=== PATIENT | female | born 1925 | race Caucasian/White ===

== ENCOUNTER 2017-05-25 20:38 | Inpatient (IN) | payer OTHER, MEDICARE ==
[2017-05-25 21:02] VITALS: BMI 27.3
--- NOTE | 2017-05-25 21:55 | PDOC ---
History of Present Illness - General Chief Complaint: Pain Stated Complaint: SWELLEN RIGHT LEG. Time Seen by Provider: 05/25/17 21:13 - History of Present Illness Initial Comments: 05/25/17 21:54 CHIEF COMPLAINT: leg pain HISTORY OF PRESENT ILLNESS: 89 yo F with hx of afib, NIDDM, diverticulitis, renal insufficiecny, anemia, osteoarthritis, and anxiety presents to ED w/ c/o redness, tenderness, and swelling to b/l shins. Patient reports that she noticed the redness yesterday but "didn't think much of it", but today she "was sitting and put my hand on my leg and noticed it was kind of tender, and when I looked down the redness and swelling was worse than yesterday on my left leg. And now it's on my right leg too." She denies any recent trauma or injury to the leg, but states "sometimes I felt like maybe some bugs were biting me, but I never noticed any bites." She denies any chest pain, shortness of breath, headache, dizzines, fever, chills, nausea, vomiting, or diarrhea. No recent travel or sick contacts. PAST MEDICAL HISTORY: as per HPI FAMILY HISTORY: Denies SOCIAL HISTORY: Former smoker. Denies alcohol, illicit drug use. SURGICAL HISTORY: colectomy, colostomy ALLERGIES: bacitracin, codeine REVIEW OF SYSTEMS General/Constitutional: Denies fever or chills. Denies weakness, weight change. HEENT: Denies change in vision. Denies ear pain or discharge. Denies sore throat. Cardiovascular: Denies chest pain or shortness of breath. Respiratory: Denies cough, wheezing, or hemoptysis. Gastrointestinal: Denies nausea, vomiting, diarrhea or constipation. Denies rectal bleeding. Genitourinary: Denies dysuria, frequency, or change in urination. Musculoskeletal: Swelling, redness, pain to b/l lower legs. Skin and breasts: Denies itching, rash or easy bruising. Neurologic: Denies headache, vertigo, loss of consciousness, or loss of sensation. PHYSICAL EXAM General Appearance: Well-appearing, appropriately dressed. No apparent distress. HEENT: EOMI, PERRLA, normal ENT inspection, normal voice, TMs normal, pharynx normal. No conjunctival pallor. No photophobia, scleral icterus. Respiratory/Chest: Lungs CTAB. No shortness of breath, chest tenderness, respiratory distress, accessory muscle use. No crackles, rales, rhonchi, stridor , wheezing, dullness Cardiovascular: RRR. S1, S2. Vascular Pulses: Dorsalis-Pedis (R): 2+, Dorsalis-Pedis (L): 2+ Gastrointestinal/Abdominal: Normal bowel sounds. Abdomen soft, non-distended. No tenderness or rebound tenderness. No organomegaly, pulsatile mass, guarding , hernia, hepatomegaly, splenomegaly. Musculoskeletal/Extremities: 1+ pitting edema, erythema, tenderness, warmth, and swelling to b/l lower legs. FROM of all extremities, normal capillary refill. Integumentary: See MSK. Neurologic: parts room clerk II-XII intact. Fully oriented, alert. Appropriate mood/affect. Motor strength 5/5. No appreciable EOM palsy, facial droop or sensory deficit. 05/25/17 22:48 Past History - Past Medical History Allergies/Adverse Reactions: Allergies Allergy/AdvReac Type Severity Reaction Status Date / Time bacitracin Allergy Verified 05/25/17 20:59 bacitracin zinc Allergy Verified 05/25/17 20:59 [From Neosporin] codeine [Codeine] Allergy Verified 05/25/17 20:59 Home Medications: Ambulatory Orders Gabapentin 600 mg PO DAILY 07/23/15 Acetaminophen [Tylenol .Regular Strength -] 650 mg PO Q4H PRN #0 tablet Allopurinol [Zyloprim -] 100 mg PO DAILY tablet 08/03/15 Aspirin [ASA -] 81 mg PO DAILY tab.chew 08/03/15 Carvedilol [Coreg -] 6.25 mg PO BID tablet 08/03/15 B12/Levomefolate Calcium/B-6 1 DAILY 01/26/16 Bepreve 1 OU DAILY 01/26/16 Calcium + Vitamin D Tablet 1 DAILY 01/26/16 Furosemide 20 mg PO DAILY 01/26/16 Latanoprost 1 OU DAILY 01/26/16 Nateglinide 60 mg PO BID 01/26/16 Polyethylene Glycol 3350 [Miralax 119 gm Btl -] 17 gm PO Q48H 01/26/16 Prilosec 20 mg PO Q48H 01/26/16 Slo-Iron DAILY 01/26/16 Vitamin C 1 DAILY 01/26/16 Cardiac Disorders: Yes COPD: Yes CHF: Yes Diabetes: Yes (type 2) GI Disorders: Yes (Diverticulitis, multiple abd Sx WMC, colostomy) Disorders: Yes (incontinence) HTN: Yes - Surgical History Abdominal Surgery: Yes (COLOSTOMY, HERNIA) - Psycho/Social/Smoking Cessation Hx Anxiety: No Suicidal Ideation: No Smoking Status: No Smoking History: Never smoked Have you smoked in the past 12 months: No Number of Cigarettes Smoked Daily: 0 Information on smoking cessation initiated: No Hx Alcohol Use: No Drug/Substance Use Hx: No Substance Use Type: None Hx Substance Use Treatment: No *Physical Exam - Vital Signs Last Vital Signs Temp Pulse Resp BP Pulse Ox 97.7 F 61 18 147/65 97 05/25/17 20:59 05/25/17 20:59 05/25/17 20:59 05/25/17 20:59 05/25/17 20:59 ED Treatment Course - LABORATORY CBC & Chemistry Diagram: 05/25/17 22:52 05/25/17 22:52 - RADIOLOGY Radiology Studies Ordered: Category Date Time Status CHEST PA & LAT [RAD] Stat Radiology 05/25/17 21:44 Ordered Medical Decision Making - Medical Decision Making 05/25/17 22:55 89 yo F with hx of afib, NIDDM, diverticulitis, renal insufficiecny, anemia, osteoarthritis, and anxiety presents to ED w/ c/o redness, tenderness, and swelling to b/l shins. -CBC, CMP, PT/INR -Duplex US b/l legs 05/26/17 11:45 US positive for left posterior tibial DVt. 05/26/17 00:[address] Merida, covering for PCP MD Santana. Dr. Merida requests to admit under hospitalist and will come in for consult tomorrow. -70 mg lovenox Patient admitted to med/surg under hospitalist service *DC/Admit/Observation/Transfer Diagnosis at time of Disposition: DVT (deep venous thrombosis) Qualifiers: DVT location: lower extremity Affected thrombotic vein of extremity: tibial Chronicity: acute Laterality: left Qualified Code(s): I82.442 - Acute embolism and thrombosis of left tibial vein - Discharge Dispostion Admit: Yes - Referrals Referrals: Star Santana MD [Primary Care Provider] -
[2017-05-25 23:03] LABS: BASOPHIL 1.9 % (0-2.0); EOSINOPHIL 4.5 % (0-4.5); MCHC 31.8 g/dl (32.0-36.0); MEAN CELL VOLUME 81.6 fl (80-96); NEUTROPHILS 60.6 % (42.8-82.8); PLATELET COUNT 153 K/MM3 (134-434); RDW 19.8 % (11.6-15.6); WHITE BLOOD COUNT 4.9 K/mm3 (4.0-10.0)
[2017-05-25 23:26] LABS: INR 1.03 (0.82-1.09); PROTHROMBIN TIME (PATIENT) 11.3 SEC (9.98-11.88)
[2017-05-25] MEDS ORDERED: ENOXAPARIN NA (PORCINE) 60 MG/0.6 ML DISP.SYRIN SQ SCH (23:45)
[2017-05-25 23:50] LABS: ALBUMIN 3.1 g/dl (3.4-5.0); ANION GAP 12 (8-16); BILIRUBIN,TOTAL 0.2 mg/dL (0.2-1.0); CALCIUM 8.4 mg/dL (8.5-10.1); CO2 19 mmol/L (21-32); CREATININE 2.2 mg/dL (0.55-1.02); GLUCOSE,RANDOM 130 mg/dL (74-106); SGOT/AST 13 U/L (15-37); SGPT/ALT 15 U/L (12-78); TOT PROT 5.8 g/dl (6.4-8.2)
[2017-05-25 23:52] LABS: ALK PHOS 63 U/L (45-117)
[2017-05-26] MEDS ORDERED: ENOXAPARIN NA (PORCINE) 80 MG/0.8 ML DISP.SYRIN SQ ONE (00:18)
--- NOTE | 2017-05-26 00:48 | PN ---
Teaching Attending Note Name of Resident: Yoshi Morales ATTENDING PHYSICIAN STATEMENT I saw and evaluated the patient. I reviewed the resident's note and discussed the case with the resident. I agree with the resident's findings and plan as documented. SUBJECTIVE: 89 yo F with Pmhx of afib, NIDDM, diverticulitis, CKD, anemia, OA, and anxiety , presents with erythema, tenderness, to shins. States she noticed her erythema and edema on her left leg today as she was sitting. States that erythema was apparent on both legs, but progressed to warmth and edema on L. Leg. Denies any shortness of breath, chest pain or pressure. Recieved Lovenox 70 in ED OBJECTIVE: Physical: VS" Vital Signs Period Temp Pulse Resp BP Sys/Phillips Pulse Ox Last 24 Hr 97.7 F 61 18 147/65 97 GEN: NAD, Resting in Bed, HEENT: NCAT, PERRL CARD: RRR S1, S2 RESP: CTAB ABD: BSX4, NTD to palpation EXT: Bilateral gutierrez erythemam R+L ext. LLE with warmth and edema, +2/4 pulses CBCD WBC 4.9 K/mm3 (4.0-10.0) D 05/25/17 22:52 RBC 3.50 M/mm3 (3.60-5.2) L 05/25/17 22:52 Hgb 9.1 GM/dL (10.7-15.3) L D 05/25/17 22:52 Hct 28.6 % (32.4-45.2) L 05/25/17 22:52 MCV 81.6 fl (80-96) 05/25/17 22:52 MCHC 31.8 g/dl (32.0-36.0) L 05/25/17 22:52 RDW 19.8 % (11.6-15.6) H 05/25/17 22:52 Plt Count 153 K/MM3 (134-434) D 05/25/17 22:52 MPV 11.0 fl (7.5-11.1) D 05/25/17 22:52 CMP Sodium 145 mmol/L (136-145) 05/25/17 22:52 Potassium 4.7 mmol/L (3.5-5.1) 05/25/17 22:52 Chloride 114 mmol/L (98-107) H 05/25/17 22:52 Carbon Dioxide 19 mmol/L (21-32) L D 05/25/17 22:52 Anion Gap 12 (8-16) 05/25/17 22:52 BUN 57 mg/dL (7-18) H D 05/25/17 22:52 Creatinine 2.2 mg/dL (0.55-1.02) H D 05/25/17 22:52 Creat Clearance w eGFR 21.02 (>60) 05/25/17 22:52 Random Glucose 130 mg/dL (74-106) H 05/25/17 22:52 Calcium 8.4 mg/dL (8.5-10.1) L 05/25/17 22:52 Total Bilirubin 0.2 mg/dL (0.2-1.0) D 05/25/17 22:52 AST 13 U/L (15-37) L D 05/25/17 22:52 ALT 15 U/L (12-78) D 05/25/17 22:52 Alkaline Phosphatase 63 U/L (45-117) 05/25/17 22:52 Total Protein 5.8 g/dl (6.4-8.2) L 05/25/17 22:52 Albumin 3.1 g/dl (3.4-5.0) L D 05/25/17 22:52 CXR- Pending Home Medications Medication Instructions Recorded Gabapentin 600 mg PO DAILY 07/23/15 Acetaminophen [Tylenol .Regular 650 mg PO Q4H PRN #0 tablet 08/03/15 Strength -] Allopurinol [Zyloprim -] 100 mg PO DAILY tablet 08/03/15 Aspirin [ASA -] 81 mg PO DAILY tab.chew 08/03/15 Carvedilol [Coreg -] 6.25 mg PO BID tablet 08/03/15 B12/Levomefolate Calcium/B-6 1 DAILY 01/26/16 Bepreve 1 OU DAILY 01/26/16 Calcium + Vitamin D Tablet 1 DAILY 01/26/16 Furosemide 20 mg PO DAILY 01/26/16 Latanoprost 1 OU DAILY 01/26/16 Nateglinide 60 mg PO BID 01/26/16 Polyethylene Glycol 3350 [Miralax 17 gm PO Q48H 01/26/16 119 gm Btl -] Prilosec 20 mg PO Q48H 01/26/16 Slo-Iron DAILY 01/26/16 Vitamin C 1 DAILY 01/26/16 DVT: L. Posterior Tibial Vein ASSESSMENT AND PLAN: 89 yo F with Pmhx of Afib, NIDDM, CKD, anemia, OA who presents with LLE DVT 1.) DVT LLE - S/P Lovenox in ED - In light of inc. Cr. would start Heparin in amand bridge to Coumadin or consider Eliquis 2.) Afib - Rate controlled - C/W Coreg 3.) NIDDM - FS - RAISS 4.) Anemia - Chk. Fe studies - C/W iron - Chl B12/folate Place in OBS
--- NOTE | 2017-05-26 02:40 | HP ---
CHIEF COMPLAINT: Leg Pain PCP: Dr. Davis HISTORY OF PRESENT ILLNESS: Pt is an 89yo F with a PMHx of Afib not on Anticoag, DM2, HTN, CHF, CKD, Anemia , OA, multiple large bowel procedures who presented with a couple of days of erythematous, swollen legs. The patient first noticed a scab on her L leg days ago, and further pinpoint hemorrhagic spots. She then noticed the redness in her L leg became more diffuse, without TTP. Yesterday the patient noted her R leg also becoming diffusely erythematous, swollen, and this time TTP in the lateral calf area. The patient has no hx of recent decrease in mobility, no active cancer, no prior DVTs or PEs. She does not recall being on anticoagulation. ER course was notable for: (1) D-Dimer - elevated (2) B/L duplex U/S - L tibial DVT (3) Started Enoxaparin 70 Recent Travel: Denies PAST MEDICAL HISTORY: Afib not on Anticoag, DM2, HTN, Diabetic Nephropathy, Anemia, OA PAST SURGICAL HISTORY: Multiple large bowel surgeries, pt has permanent colostomy. Social History: Smoking: Former smoker, quit 20 years ago Alcohol: Denies Drugs: Denies Family History: Denies Immediate FHx of cancer Allergies bacitracin Allergy (Verified 05/25/17 20:59) bacitracin zinc [From Neosporin] Allergy (Verified 05/25/17 20:59) codeine [Codeine] Allergy (Verified 05/25/17 20:59) HOME MEDICATIONS: Home Medications Medication Instructions Recorded Gabapentin 600 mg PO DAILY 07/23/15 Acetaminophen [Tylenol .Regular 650 mg PO Q4H PRN #0 tablet 08/03/15 Strength -] Allopurinol [Zyloprim -] 100 mg PO DAILY tablet 08/03/15 Aspirin [ASA -] 81 mg PO DAILY tab.chew 08/03/15 Carvedilol [Coreg -] 6.25 mg PO BID tablet 08/03/15 B12/Levomefolate Calcium/B-6 1 DAILY 01/26/16 Bepreve 1 OU DAILY 01/26/16 Calcium + Vitamin D Tablet 1 DAILY 01/26/16 Furosemide 20 mg PO DAILY 01/26/16 Latanoprost 1 OU DAILY 01/26/16 Nateglinide 60 mg PO BID 01/26/16 Polyethylene Glycol 3350 [Miralax 17 gm PO Q48H 01/26/16 119 gm Btl -] Prilosec 20 mg PO Q48H 01/26/16 Slo-Iron DAILY 01/26/16 Vitamin C 1 DAILY 01/26/16 REVIEW OF SYSTEMS CONSTITUTIONAL: Absent: fever, chills, diaphoresis, generalized weakness, malaise, loss of appetite, weight change HEENT: Absent: rhinorrhea, nasal congestion, throat pain, throat swelling, difficulty swallowing, mouth swelling, ear pain, eye pain, visual changes CARDIOVASCULAR: Absent: chest pain, syncope, palpitations, irregular heart rate, lightheadedness , peripheral edema RESPIRATORY: Absent: cough, shortness of breath, dyspnea with exertion, orthopnea, wheezing, stridor, hemoptysis GASTROINTESTINAL: Absent: abdominal pain, abdominal distension, nausea, vomiting, diarrhea, constipation, melena, hematochezia GENITOURINARY: Absent: dysuria, frequency, urgency, hesitancy, hematuria, flank pain, genital pain MUSCULOSKELETAL: Absent: arthralgia, joint swelling, back pain, neck pain Present: leg swelling, myalgia SKIN: Absent: rash, itching, pallor HEMATOLOGIC/IMMUNOLOGIC: Absent: easy bleeding, lymphadenopathy, frequent infections Present: easy bruising ENDOCRINE: Absent: unexplained weight gain, unexplained weight loss, heat intolerance, cold intolerance NEUROLOGIC: Absent: headache, focal weakness or paresthesias, dizziness, unsteady gait, seizure, mental status changes, bladder or bowel incontinence PSYCHIATRIC: Absent: anxiety, depression, suicidal or homicidal ideation, hallucinations. PHYSICAL EXAMINATION GENERAL: AAO x3, In no acute distress HEENT: PERRLA, EOMi, No LAD LUNGS: CTABL, non labored breathing HEART: S1, S2, bradycardic rate, regular rhythm, no murmurs ABD: Pt has pouch of large intestine covered over by skin graft, colostomy bag attached, soft, nontender, non-distended, normal BS MSK (UPPER): 2+ pulses, warm, well perfuse, easy bruising MSK (LOWER) RIGHT: 2+ pulses, erythematous, not-warm area extending from ankle to below knee, 1+ pitting edema, TTP in R lateral calf, neg homans LEFT: 2+ pulses, mild erythema, non-localized, 1 healed over scab wound, multiple pinpoint hemorrhages, no pitting edema, no TTP, neg homans NEURO: Cranial nerves 2-12 intact, sensation was intact to face/body, MSK 5+ in all extremities Laboratory Last Values WBC 4.9 K/mm3 (4.0-10.0) D 05/25/17 22:52 RBC 3.50 M/mm3 (3.60-5.2) L 05/25/17 22:52 Hgb 9.1 GM/dL (10.7-15.3) L D 05/25/17 22:52 Hct 28.6 % (32.4-45.2) L 05/25/17 22:52 MCV 81.6 fl (80-96) 05/25/17 22:52 MCH 26.0 pg (25.7-33.7) 05/25/17 22:52 MCHC 31.8 g/dl (32.0-36.0) L 05/25/17 22:52 RDW 19.8 % (11.6-15.6) H 05/25/17 22:52 Plt Count 153 K/MM3 (134-434) D 05/25/17 22:52 MPV 11.0 fl (7.5-11.1) D 05/25/17 22:52 Neutrophils % 60.6 % (42.8-82.8) 05/25/17 22:52 Lymphocytes % 17.5 % (8-40) D 05/25/17 22:52 Monocytes % 15.5 % (3.8-10.2) H 05/25/17 22:52 Eosinophils % 4.5 % (0-4.5) 05/25/17 22:52 Basophils % 1.9 % (0-2.0) D 05/25/17 22:52 INR 1.03 (0.82-1.09) 05/25/17 22:52 D-Dimer 315 ng/ml (<200-235) H 05/25/17 22:52 Sodium 145 mmol/L (136-145) 05/25/17 22:52 Potassium 4.7 mmol/L (3.5-5.1) 05/25/17 22:52 Chloride 114 mmol/L (98-107) H 05/25/17 22:52 Carbon Dioxide 19 mmol/L (21-32) L D 05/25/17 22:52 Anion Gap 12 (8-16) 05/25/17 22:52 BUN 57 mg/dL (7-18) H D 05/25/17 22:52 Creatinine 2.2 mg/dL (0.55-1.02) H D 05/25/17 22:52 Creat Clearance w eGFR 21.02 (>60) 05/25/17 22:52 Random Glucose 130 mg/dL (74-106) H 05/25/17 22:52 Calcium 8.4 mg/dL (8.5-10.1) L 05/25/17 22:52 Total Bilirubin 0.2 mg/dL (0.2-1.0) D 05/25/17 22:52 AST 13 U/L (15-37) L D 05/25/17 22:52 ALT 15 U/L (12-78) D 05/25/17 22:52 Alkaline Phosphatase 63 U/L (45-117) 05/25/17 22:52 B-Natriuretic Peptide 713.31 pg/ml (5-450) H 05/25/17 22:52 Total Protein 5.8 g/dl (6.4-8.2) L 05/25/17 22:52 Albumin 3.1 g/dl (3.4-5.0) L D 05/25/17 22:52 IMAGING: BLLE U/S - call center manager image reading: L posterior tibial vein DVT ASSESSMENT/PLAN: Pt is an 89yo F w/ hx of Afib not on anticoag, CKD, DM2 who presented with progressive erythema, swelling on bilateral legs who was noted to have a L posterior tibial DVT # L posterior tibial DVT - Pt received Lovenox in ED - Start Heparin protocol in AM - Eventually PO anticoagulant at discharge # VIOLET on CKD - CKD from diabetic nephropathy - Give gentle IVF 42cc/hr - D/c'd lovenox and started heparin - Hold Nephrotoxic meds - Renally dose all meds # Hx of Afib - Pt is now in sinus rhythm - Continue Coreg 6.25mg PO BID for rate control # Hx of NIDDM - Pts home Nateglinide is nonformulary - Start BGMs with SSI - Continue Gabapentin 600mg PO QD # Hx of Anemia - F/u CBCs, transfuse to keep Hgb >7 - F/u iron panel, B12, folate # Hx of CHF - Hold Lasix in light of high Cr - Monitor for fluid overload with gently hydration # FEN - Fluid: 42cc/hr IV NS - Electrolytes: F/u - Nutrition: Renal diet # Prophylaxis - DVT: Pt had lovenox, will be on heparin - GI: Not indicated - Deconditioning: PT ordered # Disposition - Placed in obs Dr. Yoshi Morales MD. PGY1 - IM Resident The case was discussed with the attending physician Dr. Diallo Visit type - Emergency Visit Emergency Visit: Yes ED Registration Date: 05/27/17 Care time: The patient presented to the Emergency Department on the above date and was hospitalized for further evaluation of their emergent condition. - New Patient This patient is new to me today: Yes Date on this admission: 05/27/17 - Critical Care Critical Care patient: No
[2017-05-26] MEDS ORDERED: POLYETHYLENE GLYCOL 3350 119 GM BTL PO SCH (03:30)
[2017-05-26] MEDS ORDERED: SODIUM CHLORIDE 1,000 ML IV SCH ×3 (03:30→08:45)
[2017-05-26] MEDS: INSULIN SLIDING SCALE (NOVOLOG) 1 VIAL SQ SCH ×4 (07:03→23:06)
[2017-05-26] MEDS ORDERED: CARVEDILOL 6.25 MG TABLET (FP) PO SCH ×2 (10:00)
[2017-05-26] MEDS ORDERED: GABAPENTIN 300 MG CAPSULE (FP) PO SCH (10:00)
[2017-05-26] MEDS ORDERED: CARVEDILOL 12.5 MG TABLET (FP) PO SCH (10:00)
--- NOTE | 2017-05-26 10:01 | CON.NEP ---
Consult Consult Specialty:: Nephrology ([facility]) Referred by:: Alexi Reason for Consultation:: CKD stage 4 - History of Present Illness Chief Complaint: Leg swelling History of Present Illness: This is a 89 year old woman with PMhx of CKD Stage 4, DM, Multiple Abd surgeries for Diverticulitis, Chronic Anemia, Peripheral Neuropathy, COPD, who presented to the ED with Left LE swelling and and Right LE tenderness and found to have a left LE DVT. Pt states that she has noticed more bruising on her leg and tenderness. Denies any chest pain, abd pain N/V/D, SOB, fever, chills. Pt has been compliant with all her meds at home. Reports frequent urination which is her baseline. On Lasix at home. Pt was noted to have mild hyperkalemia in the office recently and is controlled by diet. Not on LORI/ARB. 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 No: Alzheimer's, CVA Cardio/Vascular: Yes: AFIB (paroxysmal). No: Aneurysm Pulmonary: Yes: COPD Gastrointestinal: Yes: Other (permanent ostomy post complicated prolonged abdominal surgery for ruptured diverticular approximately 12 years ago.) Hepatobiliary: Yes: Cholecystitis Renal/: Yes: Renal Inusuff Psych: Yes: Anxiety Musculoskeletal: Yes: Osteoarthritis. No: Chronic low back pain Endocrine: Yes: Diabetes Mellitus, Other (gout) - Past Surgical History Past Surgical History: Yes: Colectomy, Colostomy, Hernia Repair, Joint Replacement (hip) - Alcohol/Substance Use Hx Alcohol Use: No - Smoking History Smoking history: Never smoked Have you smoked in the past 12 months: No Aproximately how many cigarettes per day: 0 Home Medications - Allergies Allergies/Adverse Reactions: Allergies Allergy/AdvReac Type Severity Reaction Status Date / Time bacitracin Allergy Verified 05/25/17 20:59 bacitracin zinc Allergy Verified 05/25/17 20:59 [From Neosporin] codeine [Codeine] Allergy Verified 05/25/17 20:59 - Home Medications Home Medications: Ambulatory Orders Allopurinol [Zyloprim -] 100 mg PO DAILY 05/26/17 Ascorbic Acid/Ascorbate Sodium [Vit C-Abigail Hips 500 mg Chew Tb] 500 mg PO BID Aspirin [Aspirin EC] 81 mg PO DAILY 05/26/17 Carvedilol 12.5 mg PO BID 05/26/17 Gabapentin 300 mg PO DAILY 05/26/17 Iron 18 mg PO BID 05/26/17 Mirtazapine [Remeron Soltab -] 15 mg PO DAILY 05/26/17 Nateglinide [Starlix (Nf)] 30 mg PO BID 05/26/17 Prilosec 0 mg PO DAILY 05/26/17 Vit B12/Intrinsic Fact/Folate [Intrinsi [id number] Tablet] 1 each PO DAILY 05/26 Family Disease History - Family Disease History Family History: Unremarkable Review of Systems - Review of Systems Constitutional: denies: Chills, Fever, Loss of Appetite Eyes: reports: No Symptoms HENT: reports: No Symptoms Neck: reports: No Symptoms Cardiovascular: denies: Chest Pain, Edema, Palpitations, Shortness of Breath Respiratory: denies: Cough, Exercise Intolerance, Hemoptysis, Orthopnea, SOB on Exertion Gastrointestinal: reports: No Symptoms Musculoskeletal: reports: Extremity Pain Integumentary: reports: Bruising Neurological: reports: No Symptoms Nephrology Consult - Height Height: 5 ft 3 in - Weight Weight: 154 lb 8 oz - BMI Body Mass Index (BMI): 27.3 - Lab Results Anion Gap: Anion Gap Anion Gap 12 (8-16) 05/25/17 22:52 - Imaging Ultrasound: Report Reviewed - Physical Examination Vital Signs: Vital Signs Temperature 98.7 F 05/26/17 07:26 Pulse Rate 58 L 05/26/17 07:26 Respiratory Rate 18 05/26/17 07:26 Blood Pressure 143/59 05/26/17 07:26 O2 Sat by Pulse Oximetry (%) 98 05/26/17 03:46 Constitutional: Yes: Well Nourished, No Distress, Calm Eyes: Yes: Conjunctiva Clear HENT: Yes: Atraumatic, Normocephalic Neck: Yes: Supple Cardiovascular: Yes: Regular Rate and Rhythm Respiratory: Yes: Regular, Rhonchi (at lung bases) Gastrointestinal: Yes: Normal Bowel Sounds, Soft, Hernia (Large Ventral hernia) Renal/: No: Bladder Distention, CVA Tenderness - Left, CVA Tenderness - Right , Alberto Present Edema: Yes Edema: LLE: 1+, RLE: 1+ Neurological: Yes: Alert, Oriented Problem List - Problems (1) DVT (deep venous thrombosis) Code(s): I82.409 - ACUTE EMBOLISM AND THOMBOS UNSP DEEP VN UNSP LOWER EXTREMITY Qualifiers: DVT location: lower extremity Affected thrombotic vein of extremity: tibial Chronicity: acute Laterality: left Qualified Code(s): I82.442 - Acute embolism and thrombosis of left tibial vein (2) CKD (chronic kidney disease) Code(s): N18.9 - CHRONIC KIDNEY DISEASE, UNSPECIFIED Qualifiers: Chronic kidney disease stage: stage 3 (moderate) Qualified Code(s): N18.3 - Chronic kidney disease, stage 3 (moderate) (3) Ventral hernia with bowel obstruction Code(s): K43.6 - OTHER AND UNSP VENTRAL HERNIA WITH OBSTRUCTION, W/O GANGRENE (4) Metabolic acidosis Code(s): E87.2 - ACIDOSIS Assessment/Plan 89 year old woman with PMhx of CKD Stage 4, DM, Multiple Abd surgeries for Diverticulitis, Chronic Anemia, Peripheral Neuropathy, COPD, who presented to the ED with Left LE swelling and and Right LE tenderness and found to have a left LE DVT. #CKD Stage 4 (Baseline CR 2.1-2.3) Serum Cr is presently at baseline BUN elevated -? intravascular volume depletion agree with trial of gentle IVF check UA if possible #DVT on Eliquis on apporiate dose for CKD #Non-Anion gap metabolic acidosis secondary to CKD Start sodium bicarb 650mg Daily goal bicarb > 22 #Normocytoic anemia Check stools and iron studies Thank you for this referral Will follow Faisal Ha DO
[2017-05-26] MEDS ORDERED: PT OWN MED DRAWER 7, Y5N ONE ×2 (10:35→21:34)
[2017-05-26] MEDS: ASPIRIN 81 MG CHEWABLE TABLETS PO SCH (10:37)
[2017-05-26] MEDS: ALLOPURINOL 100 MG TABLET (FP) PO SCH (10:38)
[2017-05-26] MEDS: CALCIUM 500MG/VIT-D 200 UNITS COMBO TABLET (FP) PO SCH (10:42)
[2017-05-26] MEDS: POLYETHYLENE GLYCOL 3350 119 GM BTL PO SCH (10:43)
--- NOTE | 2017-05-26 11:38 | HOSP ---
Subjective - Review of Symptoms Subjective: PT seen and examined. She is having an acute pain to her LLE thigh and hip, describing as a "Kulwinder horse" Physical Examination Vital Signs: Vital Signs Temperature 98.7 F 05/26/17 07:26 Pulse Rate 58 L 05/26/17 07:26 Respiratory Rate 18 05/26/17 07:26 Blood Pressure 143/59 05/26/17 07:26 O2 Sat by Pulse Oximetry (%) 98 05/26/17 03:46 Constitutional: Yes: Calm Eyes: Yes: PERRL Neck: Yes: Supple Cardiovascular: Yes: Regular Rate and Rhythm, S1, S2 Respiratory: Yes: Rhonchi (LLL) Gastrointestinal: Yes: Soft, Other (+ colostomy bag) Extremities: Yes: Erythema (b/l LE) Edema: No Integumentary: Yes: Erythema (RLE + warm, + tenderness to palpation), Skin Tear (L gutierrez dried scab) Neurological: Yes: Alert, Oriented, Cran Nerves II-XII Intact Psychiatric: Yes: Alert, Oriented Hospitalist Encounter Assessment: Assessment: 89 year old female with Afib not on AC, DM II, HTN, CHF, CKD 4, Anemia, OA, multiple large bowel procedures admitted with LLE DVT and RLL cellulitis. Plan: 1. LLE DVT - Stop heparin - Start Eliquis 2.5mg BID - Check mg, phos now 2. RLE cellulitis - Check CXR - Start cefazolin q8 3. CKD 4 - Cr baseline 2.1-2.3 - Give gentle fluids NS @ 75cc/hr - Check urine studies 4. Non AG metabolic acidosis - Start PO bicarb 650mg 3. A fib - Rate controlled - Cont coreg 12.5mg BID - Eliqius started (no previously on AC) 4. DM II - ISS, BGM ACHS 5. HTN - Coreg 6. Anemia of chronic disease - Check iron studies
--- NOTE | 2017-05-26 11:53 | PN ---
Progress Note (short form) - Note Progress Note: PULMONARY CONSULTATION DICTATED 05/26/15 IMP LLE DVT CELLULITIS AFIB H/O CHF CHRONIC KIDNEY DISEASE STAGE 4 HTN DM ANEMIA S/P COLOSTOMY PLAN ELIQUIS ANTIBIOTICS MONITOR LYTES CHEST X-RAY RATE CONTROL DR RATLIFF Problem List - Problems (1) DVT (deep venous thrombosis) Code(s): I82.409 - ACUTE EMBOLISM AND THOMBOS UNSP DEEP VN UNSP LOWER EXTREMITY Qualifiers: DVT location: lower extremity Affected thrombotic vein of extremity: tibial Chronicity: acute Laterality: left Qualified Code(s): I82.442 - Acute embolism and thrombosis of left tibial vein (2) Metabolic acidosis Code(s): E87.2 - ACIDOSIS (3) ASHD (arteriosclerotic heart disease) Code(s): I25.10 - ATHSCL HEART DISEASE OF [place] CORONARY ARTERY W/O ANG PCTRS (4) Anemia Code(s): D64.9 - ANEMIA, UNSPECIFIED (5) Atrial fibrillation and flutter Code(s): I48.91 - UNSPECIFIED ATRIAL FIBRILLATION I48.92 - UNSPECIFIED ATRIAL FLUTTER (6) CKD (chronic kidney disease) Code(s): N18.9 - CHRONIC KIDNEY DISEASE, UNSPECIFIED Qualifiers: Chronic kidney disease stage: stage 3 (moderate) Qualified Code(s): N18.3 - Chronic kidney disease, stage 3 (moderate) (7) CKD (chronic kidney disease) stage 4, GFR 15-29 ml/min Code(s): N18.4 - CHRONIC KIDNEY DISEASE, STAGE 4 (SEVERE) (8) Diabetes 1.5, managed as type 2 Code(s): E13.9 - OTHER SPECIFIED DIABETES MELLITUS WITHOUT COMPLICATIONS (9) Hypertension Code(s): I10 - ESSENTIAL (PRIMARY) HYPERTENSION
[2017-05-26 11:57] LABS: URINE APPEARANCE CLEAR; URINE BILIRUBIN NEGATIVE (NEGATIVE); URINE BLOOD NEGATIVE (NEGATIVE); URINE COLOR STRAW; URINE GLUCOSE (UA) NEGATIVE (NEGATIVE); URINE KETONE NEGATIVE (NEGATIVE); URINE LEUK ESTERASE NEGATIVE (NEGATIVE); URINE NITRITE NEGATIVE (NEGATIVE); URINE UROBILINOGEN NEGATIVE mg/dL (0.2-1.0)
[2017-05-26] MEDS: ACETAMINOPHEN 325 MG TABLET (FP) PO PRN ×2 (12:00→20:43)
[2017-05-26 12:08] LABS: URINE PROTEIN 1+ (NEGATIVE)
[2017-05-26 12:10] LABS: URINE MUCUS RARE; URINE RBC 1 /hpf (0-3); URINE WBC 1 /hpf (3-5)
[2017-05-26] MEDS: APIXABAN 2.5 MG TABLET PO SCH ×2 (12:44→21:47)
[2017-05-26] MEDS: SODIUM BICARBONATE 650 MG TABLET PO SCH (12:44)
[2017-05-26] MEDS: CEFAZOLIN (PRE-DOCKED) 50 ML IVPB SCH ×2 (12:45→19:08)
--- NOTE | 2017-05-26 13:28 | CONS ---
PULMONARY CONSULTATION DATE OF CONSULTATION: 05/26/2017 REFERRING PHYSICIAN: Ami Truong NP HISTORY OF PRESENT ILLNESS: The patient is an 89-year-old white female with a past medical history of diabetes mellitus; chronic kidney disease, stage 4; history of colostomy; multiple surgeries secondary to diverticulitis; chronic anemia; peripheral neuropathy; COPD; admitted to [facility] with left lower extremity swelling and right lower extremity tenderness. Patient called me last night with the above complaints. At the time, she was advised to go to the emergency room to rule out DVT. She underwent a duplex of lower extremities, which revealed left lower extremity DVT. She was admitted to the floor and started on anticoagulation. Also, she noted that she had some swelling and some erythema on the right lower extremity. Of note is this was negative for DVT. Patient denies any chest pain, any palpitations. Denies any shortness of breath, cough, or hemoptysis. There is no history of recent sedentary lifestyle or prolonged bedrest. No recent surgeries. PAST MEDICAL HISTORY: Again includes chronic kidney disease, stage 4; diabetes mellitus; multiple abdominal surgeries secondary to diverticulitis, history of colostomy and a colectomy; hernia repair; hip replacement; osteoarthritis; atrial fibrillation; peripheral neuropathy; and history of cholecystitis. REVIEW OF SYSTEMS: No orthopnea. No PND. No abdominal pain. No cough. No hemoptysis. No chest pain. No palpitations. Positive left lower extremity cramping and right lower extremity discomfort. CURRENT MEDICATIONS: Include: 1. Tylenol. 2. Eliquis. 3. Neurontin. 4. Zyloprim. 5. Coreg. 6. MiraLAX. 7. NovoLog. 8. Aspirin. 9. . 10. Os-Hector. SOCIAL HISTORY: No occupational exposures. Positive history of tobacco use, quit 20 years ago. PHYSICAL EXAMINATION: General: The patient is an elderly white female, well developed, awake, alert, in no acute distress. Vital Signs: She is currently afebrile. Blood pressure 143/59, respiratory rate is 18, O2 saturation is 98% on room air. HEENT: Normocephalic, atraumatic. Neck: Supple. Heart: Irregular, irregular. Normal S1, S2. Chest: She has a few crackles at the bases. Abdomen: Soft. Bowel sounds are positive. There is an ostomy noted in the left lower quadrant. Extremities: There is some mild erythema at the right lower extremity as well as the left lower extremity. Some tenderness, right lower extremity. LABORATORY DATA: WBC is 4.9, hemoglobin 9.1, hematocrit 28.6, a platelet count of 153,000. D-dimer is 315. BUN 57, creatinine 2.2. BNP is 713. Duplex of lower extremities reveals a left infrapopliteal dyu-iy-bjmeic posterior tibial DVT. IMPRESSION: 1. Left lower extremity deep venous thrombosis, unprovoked. 2. Likely cellulitis, right lower extremity. 3. Chronic kidney disease. 4. Atrial fibrillation. 5. History of congestive heart failure. 6. Underlying chronic obstructive pulmonary disease. 7. Anemia. PLAN: Continue Eliquis, antibiotics for cellulitis. Monitor hemoglobin and hematocrit. Monitor renal function. Monitor blood sugars. ALVARO RATLIFF M.D. [id number]
[2017-05-26 14:11] LABS: PHOSPHOROUS 3.6 mg/dL (2.5-4.9)
[2017-05-26] MEDS: NYSTATIN POWDER 100,000 UNITS/GM - 15 GM TOPICAL POWDER TP SCH (16:08)
[2017-05-26] MEDS: CARVEDILOL 12.5 MG TABLET (FP) PO SCH (21:46)
[2017-05-26] MEDS: LATANOPROST 0.005% OPHTH SOLN 2.5ML BOTTLE OU SCH (21:48)
[2017-05-26] MEDS: GABAPENTIN 300 MG CAPSULE (FP) PO SCH (21:48)
[2017-05-26] MEDS: MIRTAZAPINE 15 MG TABLET (FP) PO SCH (23:44)
[2017-05-27] MEDS: CEFAZOLIN (PRE-DOCKED) 50 ML IVPB SCH ×3 (02:19→17:58)
[2017-05-27] MEDS: INSULIN SLIDING SCALE (NOVOLOG) 1 VIAL SQ SCH ×4 (06:37→21:41)
--- NOTE | 2017-05-27 08:18 | EKG ---
Test Reason : Blood Pressure : / mmHG Vent. Rate : 055 BPM Atrial Rate : 055 BPM P-R Int : 208 ms QRS Dur : 092 ms QT Int : 436 ms P-R-T Axes : 035 -14 053 degrees QTc Int : 417 ms SINUS BRADYCARDIA OTHERWISE NORMAL ECG WHEN COMPARED WITH ECG OF 23-JUL-2015 15:35, NO SIGNIFICANT CHANGE WAS FOUND Confirmed by GIAN SORTO MD ([id number]) on 05/27/2017 8:17:55 AM Referred By: Confirmed By:GIAN SORTO MD
[2017-05-27] MEDS: ALLOPURINOL 100 MG TABLET (FP) PO SCH (09:25)
[2017-05-27] MEDS: CARVEDILOL 12.5 MG TABLET (FP) PO SCH ×2 (09:25→21:39)
[2017-05-27] MEDS: SODIUM BICARBONATE 650 MG TABLET PO SCH (09:25)
[2017-05-27] MEDS: ASPIRIN 81 MG CHEWABLE TABLETS PO SCH (09:26)
[2017-05-27] MEDS: APIXABAN 2.5 MG TABLET PO SCH ×2 (09:26→21:40)
[2017-05-27] MEDS: NYSTATIN POWDER 100,000 UNITS/GM - 15 GM TOPICAL POWDER TP SCH (09:27)
[2017-05-27 09:28] LABS: FERRITIN 135.155 ng/ml (6.9-282.5)
[2017-05-27] MEDS: CALCIUM 500MG/VIT-D 200 UNITS COMBO TABLET (FP) PO SCH (09:30)
--- NOTE | 2017-05-27 10:41 | PN ---
Progress Note, Physician History of Present Illness: PULMONARY ALERT.NAD,-SOB,-LOWER EXT PAIN - Current Medication List Current Medications: Active Medications Acetaminophen (Tylenol -) 650 mg PO Q4H PRN PRN Reason: FEVER OR PAIN Last Admin: 05/26/17 20:43 Dose: 650 mg Allopurinol (Zyloprim -) 100 mg PO DAILY [facility] Last Admin: 05/27/17 09:25 Dose: 100 mg Apixaban (Eliquis -) 2.5 mg PO BID [facility] Last Admin: 05/27/17 09:26 Dose: 2.5 mg Aspirin (Asa -) 81 mg PO DAILY [facility] Last Admin: 05/27/17 09:26 Dose: 81 mg Calcium Carbonate/Cholecalciferol (Os-Hector 500+D -) 1 tab PO DAILY [facility] Last Admin: 05/27/17 09:30 Dose: Not Given Carvedilol (Coreg -) 12.5 mg PO BID [facility] Last Admin: 05/27/17 09:25 Dose: 12.5 mg Gabapentin (Neurontin -) 600 mg PO HS [facility] Last Admin: 05/26/17 21:48 Dose: 600 mg Cefazolin Sodium (Ancef 1gm Ivpb (Pre-Docked)) 50 mls @ 100 mls/hr IVPB Q8H-IV [facility] Last Admin: 05/27/17 09:26 Dose: 100 mls/hr Insulin Aspart (Novolog Vial Sliding Scale -) 1 vial SQ ACHS ALF PRN Reason: Protocol Last Admin: 05/27/17 06:37 Dose: Not Given Latanoprost (Xalatan 0.005% Eye Drops -) 1 drop OU HS [facility] Last Admin: 05/26/17 21:48 Dose: 1 drop Mirtazapine (Remeron -) 15 mg PO HS [facility] Last Admin: 05/26/17 23:44 Dose: 15 mg Nystatin (Nystop Powder -) 1 applic TP DAILY [facility] Last Admin: 05/27/17 09:27 Dose: 1 applic Polyethylene Glycol (Miralax (For Daily Use) -) 17 gm PO Q48H [facility] Last Admin: 05/26/17 10:43 Dose: 17 grams Sodium Bicarbonate (Sodium Bicarbonate -) 650 mg PO DAILY [facility] Last Admin: 05/27/17 09:25 Dose: 650 mg - Objective Vital Signs: Vital Signs Temperature 97.8 F 05/27/17 07:30 Pulse Rate 68 05/27/17 07:30 Respiratory Rate 20 05/27/17 07:30 Blood Pressure 139/90 05/27/17 07:30 O2 Sat by Pulse Oximetry (%) 96 05/26/17 23:00 Constitutional: Yes: Well Nourished, Calm Eyes: Yes: WNL HENT: Yes: Nasal Congestion Neck: Yes: WNL Cardiovascular: Yes: Pulse Irregular, S1, S2 Respiratory: Yes: CTA Bilaterally Gastrointestinal: Yes: WNL Extremities: Yes: Erythema (LESS ERYTHEMA RLE) Edema: No Labs: INR, PTT INR 1.03 (0.82-1.09) 05/25/17 22:52 - ....Imaging Chest X-ray: Report Reviewed, Image Reviewed (-INFILTRATES,-EFFUSIONS) Problem List - Problems (1) DVT (deep venous thrombosis) Code(s): I82.409 - ACUTE EMBOLISM AND THOMBOS UNSP DEEP VN UNSP LOWER EXTREMITY Qualifiers: DVT location: lower extremity Affected thrombotic vein of extremity: tibial Chronicity: acute Laterality: left Qualified Code(s): I82.442 - Acute embolism and thrombosis of left tibial vein (2) Metabolic acidosis Code(s): E87.2 - ACIDOSIS (3) ASHD (arteriosclerotic heart disease) Code(s): I25.10 - ATHSCL HEART DISEASE OF [place] CORONARY ARTERY W/O ANG PCTRS (4) Anemia Code(s): D64.9 - ANEMIA, UNSPECIFIED (5) Atrial fibrillation and flutter Code(s): I48.91 - UNSPECIFIED ATRIAL FIBRILLATION I48.92 - UNSPECIFIED ATRIAL FLUTTER (6) CKD (chronic kidney disease) Code(s): N18.9 - CHRONIC KIDNEY DISEASE, UNSPECIFIED Qualifiers: Chronic kidney disease stage: stage 3 (moderate) Qualified Code(s): N18.3 - Chronic kidney disease, stage 3 (moderate) (7) CKD (chronic kidney disease) stage 4, GFR 15-29 ml/min Code(s): N18.4 - CHRONIC KIDNEY DISEASE, STAGE 4 (SEVERE) (8) Diabetes 1.5, managed as type 2 Code(s): E13.9 - OTHER SPECIFIED DIABETES MELLITUS WITHOUT COMPLICATIONS (9) Hypertension Code(s): I10 - ESSENTIAL (PRIMARY) HYPERTENSION Assessment/Plan IMP LLE DVT CELLULITIS IMPROVING AFIB H/O CHF CHRONIC KIDNEY DISEASE STAGE 4 HTN DM ANEMIA S/P COLOSTOMY PLAN ELIQUIS ANTIBIOTICS MONITOR LYTES RATE CONTROL DR RATLIFF Problem List - Problems (1) DVT (deep venous thrombosis) Code(s): I82.409 - ACUTE EMBOLISM AND THOMBOS UNSP DEEP VN UNSP LOWER EXTREMITY Qualifiers: DVT location: lower extremity Affected thrombotic vein of extremity: tibial Chronicity: acute Laterality: left Qualified Code(s): I82.442 - Acute embolism and thrombosis of left tibial vein (2) Metabolic acidosis Code(s): E87.2 - ACIDOSIS (3) ASHD (arteriosclerotic heart disease) Code(s): I25.10 - ATHSCL HEART DISEASE OF [place] CORONARY ARTERY W/O ANG PCTRS (4) Anemia Code(s): D64.9 - ANEMIA, UNSPECIFIED (5) Atrial fibrillation and flutter Code(s): I48.91 - UNSPECIFIED ATRIAL FIBRILLATION I48.92 - UNSPECIFIED ATRIAL FLUTTER (6) CKD (chronic kidney disease) Code(s): N18.9 - CHRONIC KIDNEY DISEASE, UNSPECIFIED Qualifiers: Chronic kidney disease stage: stage 3 (moderate) Qualified Code(s): N18.3 - Chronic kidney disease, stage 3 (moderate) (7) CKD (chronic kidney disease) stage 4, GFR 15-29 ml/min Code(s): N18.4 - CHRONIC KIDNEY DISEASE, STAGE 4 (SEVERE) (8) Diabetes 1.5, managed as type 2 Code(s): E13.9 - OTHER SPECIFIED DIABETES MELLITUS WITHOUT COMPLICATIONS (9) Hypertension Code(s): I10 - ESSENTIAL (PRIMARY) HYPERTENSION
[2017-05-27] MEDS: CYCLOSPORINE 0.05% OU SCH ×2 (11:30→22:30)
[2017-05-27] MEDS: EYE OU SCH ×2 (11:30→22:30)
[2017-05-27 12:31] LABS: ANION GAP 6 (8-16); CALCIUM 8.6 mg/dL (8.5-10.1); CO2 24 mmol/L (21-32); GLUCOSE,RANDOM 96 mg/dL (74-106)
[2017-05-27 13:42] LABS: MCH 26.2 pg (25.7-33.7); MCHC 31.8 g/dl (32.0-36.0); MEAN CELL VOLUME 82.6 fl (80-96); MEAN PLT VOLUME 10.9 fl (7.5-11.1); PLATELET COUNT 148 K/MM3 (134-434); RDW 20.6 % (11.6-15.6); WHITE BLOOD COUNT 4.3 K/mm3 (4.0-10.0)
--- NOTE | 2017-05-27 14:25 | PN ---
Physical Exam: SUBJECTIVE: Patient seen and examined. She has no acute complaints, she is happy to ambulate. No further muscle pain. OBJECTIVE: Last Vital Signs Temp Pulse Resp BP Pulse Ox 97.2 F L 54 L 16 157/77 96 05/27/17 11:00 05/27/17 11:00 05/27/17 11:00 05/27/17 11:00 05/26/17 23:00 PE Neuro: alert, awake, cn 2-12intact Pulm: left lobe crackles, r lobe clear CV: s1 s2 rrr Abd: skin graft stable, + colostomy bag + surgical incisions healed +bs erythema to skin fold improved Ext: RLE erythema improved, LLE skin scab stable mild swelling Active Medications Generic Name Dose Route Start Last Admin Trade Name Freq PRN Reason Stop Dose Admin Acetaminophen 650 mg 05/26/17 03:16 05/26/17 20:43 Tylenol - PO 650 mg Q4H PRN Administration FEVER OR PAIN Allopurinol 100 mg 05/26/17 10:00 05/27/17 09:25 Zyloprim - PO 100 mg DAILY ALF Administration Apixaban 2.5 mg 05/26/17 10:00 05/27/17 09:26 Eliquis - PO 2.5 mg BID ALF Administration Aspirin 81 mg 05/26/17 10:00 05/27/17 09:26 Asa - PO 81 mg DAILY ALF Administration Calcium Carbonate/Cholecalciferol 1 tab 05/26/17 10:00 05/27/17 09:30 Os-Hector 500+D - PO Not Given DAILY ALF Carvedilol 12.5 mg 05/26/17 11:52 05/27/17 09:25 Coreg - PO 12.5 mg BID ALF Administration Gabapentin 600 mg 05/26/17 22:00 05/26/17 21:48 Neurontin - PO 600 mg HS ALF Administration Cefazolin Sodium 50 mls @ 100 mls/hr 05/26/17 12:15 05/27/17 09:26 Ancef 1gm Ivpb (Pre-Docked) IVPB 100 mls/hr Q8H-IV ALF Administration Insulin Aspart 1 vial 05/26/17 16:30 05/27/17 11:50 Novolog Vial Sliding Scale - SQ Not Given ACHS [facility] Protocol Latanoprost 1 drop 05/26/17 22:00 05/26/17 21:48 Xalatan 0.005% Eye Drops - OU 1 drop HS ALF Administration Mirtazapine 15 mg 05/26/17 23:30 05/26/17 23:44 Remeron - PO 15 mg HS ALF Administration Non-Formulary Medication 1 drop 05/27/17 11:30 Cyclosporine [Restasis] OU Q12H ALF Nateglinide (Starlix 30 mg 05/27/17 11:30 ) 30 Mg Tablet (Pt's PO Own Med) BID ALF Nystatin 1 applic 05/26/17 11:45 05/27/17 09:27 Nystop Powder - TP 1 applic DAILY ALF Administration Polyethylene Glycol 17 gm 05/26/17 08:00 05/26/17 10:43 Miralax (For Daily Use) - PO 17 grams Q48H ALF Administration Sodium Bicarbonate 650 mg 05/26/17 12:00 05/27/17 09:25 Sodium Bicarbonate - PO 650 mg DAILY ALF Administration Assessment: 89 year old female with Afib not on AC, DM II, HTN, CHF, CKD 4, Anemia, OA, multiple large bowel procedures admitted with LLE DVT and RLL cellulitis. Plan: 1. LLE DVT - Eliquis 2.5mg BID 2. RLE cellulitis - Improving - Continue cefazolin q8 (day 2) 3. CKD 4 - Cr baseline 2.1-2.3 - Improved - Fluids stopped 4. Non AG metabolic acidosis - Resolved - Stop bicarb 3. A fib - Rate controlled - Cont coreg 12.5mg BID - Eliqius BID 4. DM II - ISS, BGM ACHS - Requests to take her starlix 5. HTN - Coreg 12.5mg BID 6. Anemia of chronic disease - Iron studies pending Dispo: - Anticipate DC home tomorrow Visit type - Emergency Visit Emergency Visit: Yes ED Registration Date: 05/27/17 Care time: The patient presented to the Emergency Department on the above date and was hospitalized for further evaluation of their emergent condition. - New Patient This patient is new to me today: Yes Date on this admission: 05/27/17 - Critical Care Critical Care patient: No
[2017-05-27 14:29] LABS: ANISOCYTOSIS 2+; MICROCYTOSIS 1+; OVALOCYTES 1+; PLATELET COMMENT2 NO CLUMPING NOTED; PLATELET ESTIMATE ADEQUATE (NORMAL)
[2017-05-27] MEDS: NATEGLINIDE 60 MG PO SCH (17:53)
[2017-05-27] MEDS: GABAPENTIN 300 MG CAPSULE (FP) PO SCH (21:40)
[2017-05-27] MEDS: LATANOPROST 0.005% OPHTH SOLN 2.5ML BOTTLE OU SCH (21:41)
[2017-05-27] MEDS: MIRTAZAPINE 15 MG TABLET (FP) PO SCH (21:41)
[2017-05-27] MEDS ORDERED: MIRTAZAPINE 15 MG TABLET (FP) PO SCH (22:00)
[2017-05-28] MEDS: CEFAZOLIN (PRE-DOCKED) 50 ML IVPB SCH ×3 (01:06→17:15)
[2017-05-28] MEDS: CARVEDILOL 12.5 MG TABLET (FP) PO SCH ×3 (01:06→22:21)
[2017-05-28] MEDS: ACETAMINOPHEN 325 MG TABLET (FP) PO PRN ×2 (01:49→15:11)
[2017-05-28 06:06] LABS: SERUM IRON 93 ug/dL (27-139); TOTAL IRON BINDING CAPACITY 263 ug/dL (250-450); UIBC 170 ug/dL (118-369)
[2017-05-28] MEDS: NATEGLINIDE 60 MG PO SCH ×2 (06:59→17:50)
[2017-05-28] MEDS: INSULIN SLIDING SCALE (NOVOLOG) 1 VIAL SQ SCH ×4 (07:03→22:28)
[2017-05-28 08:45] LABS: BASOPHIL 2.1 % (0-2.0); EOSINOPHIL 5.4 % (0-4.5); MCH 25.9 pg (25.7-33.7); MCHC 31.6 g/dl (32.0-36.0); MEAN CELL VOLUME 81.9 fl (80-96); MEAN PLT VOLUME 10.5 fl (7.5-11.1); NEUTROPHILS 56.3 % (42.8-82.8); PLATELET COUNT 141 K/MM3 (134-434); RDW 19.5 % (11.6-15.6)
[2017-05-28] MEDS: POLYETHYLENE GLYCOL 3350 119 GM BTL PO SCH (08:48)
[2017-05-28 09:23] LABS: ALBUMIN 2.9 g/dl (3.4-5.0); ANION GAP 7 (8-16); BILIRUBIN,TOTAL 0.3 mg/dL (0.2-1.0); CALCIUM 8.8 mg/dL (8.5-10.1); CO2 27 mmol/L (21-32); CREATININE 1.8 mg/dL (0.55-1.02); GLUCOSE,RANDOM 106 mg/dL (74-106); SGOT/AST 10 U/L (15-37); TOT PROT 5.4 g/dl (6.4-8.2)
[2017-05-28 09:26] LABS: ALK PHOS 62 U/L (45-117); SGPT/ALT 8 U/L (12-78)
[2017-05-28] MEDS: APIXABAN 2.5 MG TABLET PO SCH ×2 (10:22→22:22)
[2017-05-28] MEDS: ASPIRIN 81 MG CHEWABLE TABLETS PO SCH (10:22)
[2017-05-28] MEDS: CALCIUM 500MG/VIT-D 200 UNITS COMBO TABLET (FP) PO SCH (10:23)
[2017-05-28] MEDS: ALLOPURINOL 100 MG TABLET (FP) PO SCH (10:23)
[2017-05-28] MEDS: NYSTATIN POWDER 100,000 UNITS/GM - 15 GM TOPICAL POWDER TP SCH (10:23)
[2017-05-28] MEDS: CYCLOSPORINE 0.05% OU SCH ×2 (10:35→22:30)
[2017-05-28] MEDS: EYE OU SCH ×2 (10:35→22:30)
--- NOTE | 2017-05-28 12:09 | PN ---
Progress Note (short form) - Note Progress Note: SUBJECTIVE: The patient was seen and examined at the bedside, she has no complaints at this time. Current Medications Generic Name Dose Route Start Last Admin Trade Name Arya PRN Reason Stop Dose Admin Acetaminophen 650 mg 05/26/17 03:16 05/28/17 01:49 Tylenol - PO 650 mg Q4H PRN Administration FEVER OR PAIN Allopurinol 100 mg 05/26/17 10:00 05/28/17 10:23 Zyloprim - PO 100 mg DAILY ALF Administration Apixaban 2.5 mg 05/26/17 10:00 05/28/17 10:22 Eliquis - PO 2.5 mg BID ALF Administration Aspirin 81 mg 05/26/17 10:00 05/28/17 10:22 Asa - PO 81 mg DAILY ALF Administration Calcium Carbonate/Cholecalciferol 1 tab 05/26/17 10:00 05/28/17 10:23 Os-Hector 500+D - PO Not Given DAILY ALF Carvedilol 12.5 mg 05/26/17 11:52 05/28/17 10:22 Coreg - PO 12.5 mg BID ALF Administration Gabapentin 600 mg 05/26/17 22:00 05/27/17 21:40 Neurontin - PO 600 mg HS ALF Administration Cefazolin Sodium 50 mls @ 100 mls/hr 05/26/17 12:15 05/28/17 10:21 Ancef 1gm Ivpb (Pre-Docked) IVPB 100 mls/hr Q8H-IV ALF Administration Insulin Aspart 1 vial 05/26/17 16:30 05/28/17 12:09 Novolog Vial Sliding Scale - SQ 2 units ACHS ALF Administration Protocol Latanoprost 1 drop 05/26/17 22:00 05/27/17 21:41 Xalatan 0.005% Eye Drops - OU 1 drop HS ALF Administration Mirtazapine 15 mg 05/26/17 23:30 05/27/17 21:41 Remeron - PO 15 mg HS ALF Administration Cyclosporine ( 1 drop 05/27/17 11:30 05/28/17 10:35 Restasis) 0.05% Eye OU 1 drop Drops (Pt's Own) Q12H ALF Administration Nateglinide (Starlix 0 mg 05/27/17 16:30 05/28/17 06:59 ) 60 Mg Tablet (Pt's PO 30 mg Own Med) BIDAC ALF Administration Nystatin 1 applic 05/26/17 11:45 05/28/17 10:23 Nystop Powder - TP 1 applic DAILY ALF Administration Polyethylene Glycol 17 gm 05/26/17 08:00 05/28/17 08:48 Miralax (For Daily Use) - PO 17 grams Q48H ALF Administration OBJECTIVE: Vital Signs Period Temp Pulse Resp BP Sys/Phillips Pulse Ox Last 24 Hr 97.2 F-98.3 F 54-75 18-20 140-160/60-97 96-97 Physical Exam: General: NAD, A&Ox3 Lungs: CTA bilaterally Heart: S1S2 Abd: Soft, non-tender. LLQ colostomy bag. Ext: RLE erythema improving CBCD WBC 4.0 K/mm3 (4.0-10.0) 05/28/17 08:20 RBC 3.76 M/mm3 (3.60-5.2) 05/28/17 08:20 Hgb 9.7 GM/dL (10.7-15.3) L 05/28/17 08:20 Hct 30.8 % (32.4-45.2) L 05/28/17 08:20 MCV 81.9 fl (80-96) 05/28/17 08:20 MCHC 31.6 g/dl (32.0-36.0) L 05/28/17 08:20 RDW 19.5 % (11.6-15.6) H 05/28/17 08:20 Plt Count 141 K/MM3 (134-434) 05/28/17 08:20 MPV 10.5 fl (7.5-11.1) 05/28/17 08:20 CMP Sodium 145 mmol/L (136-145) 05/28/17 08:20 Potassium 4.4 mmol/L (3.5-5.1) 05/28/17 08:20 Chloride 111 mmol/L (98-107) H 05/28/17 08:20 Carbon Dioxide 27 mmol/L (21-32) 05/28/17 08:20 Anion Gap 7 (8-16) L 05/28/17 08:20 BUN 38 mg/dL (7-18) H 05/28/17 08:20 Creatinine 1.8 mg/dL (0.55-1.02) H 05/28/17 08:20 Creat Clearance w eGFR 26.49 (>60) 05/28/17 08:20 Random Glucose 106 mg/dL (74-106) 05/28/17 08:20 Calcium 8.8 mg/dL (8.5-10.1) 05/28/17 08:20 Total Bilirubin 0.3 mg/dL (0.2-1.0) D 05/28/17 08:20 AST 10 U/L (15-37) L D 05/28/17 08:20 ALT 8 U/L (12-78) L D 05/28/17 08:20 Alkaline Phosphatase 62 U/L (45-117) 05/28/17 08:20 Total Protein 5.4 g/dl (6.4-8.2) L 05/28/17 08:20 Albumin 2.9 g/dl (3.4-5.0) L 05/28/17 08:20 Assessment: This is an 89 year old female with PMHx of A.fib (not on AC), DM, HTN, CHF, CKD 4, anemia, OA, colostomy, who presented to the ED with RLL cellulitis and LLE DVT Plan: 1) LLE DVT - Continue Eliquis 2.5mg po bid - Awaiting prior auth from insurance for approval for outpatient Eliquis 2) RLE cellulitis - Continue Cefazolin - Improving 3) CKD stage 4 - Cr better than baseline ~1.8 today 4) Afib - Rate controlled - Eliquis bid - Continue Coreg 5) HTN - Continue Coreg 6) F/E/N: - Renal diet - HgbA1c in AM - Monitor electrolytes 7) Prophylaxis: - Eliquis 2.5mg po bid 8) Dispo: - Requires continued inpatient care CODE STATUS: FULL CODE Problem List - Problems (1) DVT (deep venous thrombosis) Code(s): I82.409 - ACUTE EMBOLISM AND THOMBOS UNSP DEEP VN UNSP LOWER EXTREMITY Qualifiers: DVT location: lower extremity Affected thrombotic vein of extremity: tibial Chronicity: acute Laterality: left Qualified Code(s): I82.442 - Acute embolism and thrombosis of left tibial vein Visit type - Emergency Visit Emergency Visit: Yes ED Registration Date: 08/06/17 Care time: The patient presented to the Emergency Department on the above date and was hospitalized for further evaluation of their emergent condition. - New Patient This patient is new to me today: Yes Date on this admission: 05/28/17 - Critical Care Critical Care patient: No
--- NOTE | 2017-05-28 12:14 | PN ---
Progress Note, Physician History of Present Illness: pulmonary alert,nad,oob-chair,- lower pain - Current Medication List Current Medications: Active Medications Acetaminophen (Tylenol -) 650 mg PO Q4H PRN PRN Reason: FEVER OR PAIN Last Admin: 05/28/17 01:49 Dose: 650 mg Allopurinol (Zyloprim -) 100 mg PO DAILY [facility] Last Admin: 05/28/17 10:23 Dose: 100 mg Apixaban (Eliquis -) 2.5 mg PO BID [facility] Last Admin: 05/28/17 10:22 Dose: 2.5 mg Aspirin (Asa -) 81 mg PO DAILY [facility] Last Admin: 05/28/17 10:22 Dose: 81 mg Calcium Carbonate/Cholecalciferol (Os-Hector 500+D -) 1 tab PO DAILY [facility] Last Admin: 05/28/17 10:23 Dose: Not Given Carvedilol (Coreg -) 12.5 mg PO BID [facility] Last Admin: 05/28/17 10:22 Dose: 12.5 mg Gabapentin (Neurontin -) 600 mg PO HS [facility] Last Admin: 05/27/17 21:40 Dose: 600 mg Cefazolin Sodium (Ancef 1gm Ivpb (Pre-Docked)) 50 mls @ 100 mls/hr IVPB Q8H-IV [facility] Last Admin: 05/28/17 10:21 Dose: 100 mls/hr Insulin Aspart (Novolog Vial Sliding Scale -) 1 vial SQ ACHS ALF PRN Reason: Protocol Last Admin: 05/28/17 12:09 Dose: 2 units Latanoprost (Xalatan 0.005% Eye Drops -) 1 drop OU HS [facility] Last Admin: 05/27/17 21:41 Dose: 1 drop Mirtazapine (Remeron -) 15 mg PO HS [facility] Last Admin: 05/27/17 21:41 Dose: 15 mg Cyclosporine ( Restasis) 0.05% Eye Drops (Pt's Own) 1 drop OU Q12H [facility] Last Admin: 05/28/17 10:35 Dose: 1 drop Nateglinide (Starlix ) 60 Mg Tablet (Pt's Own Med) 0 mg PO BIDAC [facility] Last Admin: 05/28/17 06:59 Dose: 30 mg Nystatin (Nystop Powder -) 1 applic TP DAILY [facility] Last Admin: 05/28/17 10:23 Dose: 1 applic Polyethylene Glycol (Miralax (For Daily Use) -) 17 gm PO Q48H ALF Last Admin: 05/28/17 08:48 Dose: 17 grams - Objective Vital Signs: Vital Signs Temperature 97.7 F 05/28/17 10:00 Pulse Rate 68 05/28/17 10:00 Respiratory Rate 18 05/28/17 10:00 Blood Pressure 140/64 05/28/17 10:00 O2 Sat by Pulse Oximetry (%) 97 05/28/17 01:00 Constitutional: Yes: Well Nourished, Calm Eyes: Yes: WNL HENT: Yes: WNL Neck: Yes: WNL Cardiovascular: Yes: Pulse Irregular, S1, S2 Respiratory: Yes: Rales (few bibasilar crackles) Gastrointestinal: Yes: Normal Bowel Sounds, Soft Extremities: Yes: Erythema (imporving erythema rle) Edema: No Labs: CBC, BMP 05/28/17 08:20 05/28/17 08:20 INR, PTT INR 1.03 (0.82-1.09) 05/25/17 22:52 Problem List - Problems (1) DVT (deep venous thrombosis) Code(s): I82.409 - ACUTE EMBOLISM AND THOMBOS UNSP DEEP VN UNSP LOWER EXTREMITY Qualifiers: DVT location: lower extremity Affected thrombotic vein of extremity: tibial Chronicity: acute Laterality: left Qualified Code(s): I82.442 - Acute embolism and thrombosis of left tibial vein (2) Metabolic acidosis Code(s): E87.2 - ACIDOSIS (3) ASHD (arteriosclerotic heart disease) Code(s): I25.10 - ATHSCL HEART DISEASE OF [place] CORONARY ARTERY W/O ANG PCTRS (4) Anemia Code(s): D64.9 - ANEMIA, UNSPECIFIED (5) Atrial fibrillation and flutter Code(s): I48.91 - UNSPECIFIED ATRIAL FIBRILLATION I48.92 - UNSPECIFIED ATRIAL FLUTTER (6) CKD (chronic kidney disease) Code(s): N18.9 - CHRONIC KIDNEY DISEASE, UNSPECIFIED Qualifiers: Chronic kidney disease stage: stage 3 (moderate) Qualified Code(s): N18.3 - Chronic kidney disease, stage 3 (moderate) (7) CKD (chronic kidney disease) stage 4, GFR 15-29 ml/min Code(s): N18.4 - CHRONIC KIDNEY DISEASE, STAGE 4 (SEVERE) (8) Diabetes 1.5, managed as type 2 Code(s): E13.9 - OTHER SPECIFIED DIABETES MELLITUS WITHOUT COMPLICATIONS (9) Hypertension Code(s): I10 - ESSENTIAL (PRIMARY) HYPERTENSION Assessment/Plan IMP LLE DVT CELLULITIS IMPROVING AFIB H/O CHF CHRONIC KIDNEY DISEASE STAGE 4 HTN DM ANEMIA S/P COLOSTOMY PLAN ELIQUIS ANTIBIOTICS RATE CONTROL DR RATLIFF Problem List - Problems (1) DVT (deep venous thrombosis) Code(s): I82.409 - ACUTE EMBOLISM AND THOMBOS UNSP DEEP VN UNSP LOWER EXTREMITY Qualifiers: DVT location: lower extremity Affected thrombotic vein of extremity: tibial Chronicity: acute Laterality: left Qualified Code(s): I82.442 - Acute embolism and thrombosis of left tibial vein (2) Metabolic acidosis Code(s): E87.2 - ACIDOSIS (3) ASHD (arteriosclerotic heart disease) Code(s): I25.10 - ATHSCL HEART DISEASE OF [place] CORONARY ARTERY W/O ANG PCTRS (4) Anemia Code(s): D64.9 - ANEMIA, UNSPECIFIED (5) Atrial fibrillation and flutter Code(s): I48.91 - UNSPECIFIED ATRIAL FIBRILLATION I48.92 - UNSPECIFIED ATRIAL FLUTTER (6) CKD (chronic kidney disease) Code(s): N18.9 - CHRONIC KIDNEY DISEASE, UNSPECIFIED Qualifiers: Chronic kidney disease stage: stage 3 (moderate) Qualified Code(s): N18.3 - Chronic kidney disease, stage 3 (moderate) (7) CKD (chronic kidney disease) stage 4, GFR 15-29 ml/min Code(s): N18.4 - CHRONIC KIDNEY DISEASE, STAGE 4 (SEVERE) (8) Diabetes 1.5, managed as type 2 Code(s): E13.9 - OTHER SPECIFIED DIABETES MELLITUS WITHOUT COMPLICATIONS (9) Hypertension Code(s): I10 - ESSENTIAL (PRIMARY) HYPERTENSION
[2017-05-28] MEDS ORDERED: INSULIN (NOVOLOG) ASPART 100 UNITS/ML 10ML VIAL ONE ×2 (12:44→20:09)
[2017-05-28] MEDS ORDERED: PT OWN MED DRAWER 7, Y5N ONE ×2 (14:22→17:32)
[2017-05-28] MEDS: GABAPENTIN 300 MG CAPSULE (FP) PO SCH (22:22)
[2017-05-28] MEDS: LATANOPROST 0.005% OPHTH SOLN 2.5ML BOTTLE OU SCH (22:28)
[2017-05-28] MEDS: MIRTAZAPINE 15 MG TABLET (FP) PO SCH (22:28)
[2017-05-29] MEDS: CEFAZOLIN (PRE-DOCKED) 50 ML IVPB SCH ×3 (03:00→19:00)
[2017-05-29] MEDS: ACETAMINOPHEN 325 MG TABLET (FP) PO PRN (04:32)
[2017-05-29] MEDS: INSULIN SLIDING SCALE (NOVOLOG) 1 VIAL SQ SCH ×4 (06:47→22:26)
[2017-05-29] MEDS: NATEGLINIDE 60 MG PO SCH ×2 (06:47→19:01)
[2017-05-29] MEDS ORDERED: INSULIN (NOVOLOG) ASPART 100 UNITS/ML 10ML VIAL ONE ×3 (07:15→12:23)
[2017-05-29] MEDS ORDERED: INSULIN DETEMIR 100 UNITS/ML MDV SQ ONE (07:15)
[2017-05-29] MEDS ORDERED: PT OWN MED DRAWER 7, Y5N ONE ×7 (07:16→22:09)
[2017-05-29 08:42] LABS: BASOPHIL 1.5 % (0-2.0); EOSINOPHIL 6.2 % (0-4.5); MCH 25.6 pg (25.7-33.7); MCHC 31.2 g/dl (32.0-36.0); MEAN CELL VOLUME 82.2 fl (80-96); MEAN PLT VOLUME 10.5 fl (7.5-11.1); NEUTROPHILS 59.5 % (42.8-82.8); PLATELET COUNT 146 K/MM3 (134-434); RDW 19.6 % (11.6-15.6); WHITE BLOOD COUNT 4.5 K/mm3 (4.0-10.0)
[2017-05-29 08:57] LABS: ALBUMIN 3.1 g/dl (3.4-5.0); ALK PHOS 66 U/L (45-117); ANION GAP 5 (8-16); BILIRUBIN,TOTAL 0.3 mg/dL (0.2-1.0); CALCIUM 8.6 mg/dL (8.5-10.1); CO2 29 mmol/L (21-32); CREATININE 1.9 mg/dL (0.55-1.02); GLUCOSE,RANDOM 94 mg/dL (74-106); SGOT/AST 12 U/L (15-37); SGPT/ALT 8 U/L (12-78); TOT PROT 5.9 g/dl (6.4-8.2)
[2017-05-29] MEDS: ALLOPURINOL 100 MG TABLET (FP) PO SCH (10:57)
[2017-05-29] MEDS: CALCIUM 500MG/VIT-D 200 UNITS COMBO TABLET (FP) PO SCH (10:57)
[2017-05-29] MEDS: ASPIRIN 81 MG CHEWABLE TABLETS PO SCH (10:57)
[2017-05-29] MEDS: APIXABAN 2.5 MG TABLET PO SCH ×2 (10:57→22:15)
[2017-05-29] MEDS: NYSTATIN POWDER 100,000 UNITS/GM - 15 GM TOPICAL POWDER TP SCH (10:57)
[2017-05-29] MEDS: CARVEDILOL 12.5 MG TABLET (FP) PO SCH ×2 (10:58→22:11)
--- NOTE | 2017-05-29 11:13 | PN ---
Progress Note (short form) - Note Progress Note: SUBJECTIVE: The patient was seen and examined at the bedside, she has no complaints at this time. Current Medications Generic Name Dose Route Start Last Admin Trade Name Arya PRN Reason Stop Dose Admin Acetaminophen 650 mg 05/26/17 03:16 05/29/17 04:32 Tylenol - PO 650 mg Q4H PRN Administration FEVER OR PAIN Allopurinol 100 mg 05/26/17 10:00 05/29/17 10:57 Zyloprim - PO 100 mg DAILY ALF Administration Apixaban 2.5 mg 05/26/17 10:00 05/29/17 10:57 Eliquis - PO 2.5 mg BID ALF Administration Aspirin 81 mg 05/26/17 10:00 05/29/17 10:57 Asa - PO 81 mg DAILY ALF Administration Calcium Carbonate/Cholecalciferol 1 tab 05/26/17 10:00 05/29/17 10:57 Os-Hector 500+D - PO 1 tab DAILY ALF Administration Carvedilol 12.5 mg 05/26/17 11:52 05/29/17 10:58 Coreg - PO Not Given BID ALF Gabapentin 600 mg 05/26/17 22:00 05/28/17 22:22 Neurontin - PO 600 mg HS ALF Administration Cefazolin Sodium 50 mls @ 100 mls/hr 05/26/17 12:15 05/29/17 10:58 Ancef 1gm Ivpb (Pre-Docked) IVPB 100 mls/hr Q8H-IV ALF Administration Insulin Aspart 1 vial 05/26/17 16:30 05/29/17 06:47 Novolog Vial Sliding Scale - SQ Not Given ACHS ALF Protocol Latanoprost 1 drop 05/26/17 22:00 05/28/17 22:28 Xalatan 0.005% Eye Drops - OU 1 drop HS ALF Administration Mirtazapine 15 mg 05/26/17 23:30 05/28/17 22:28 Remeron - PO 15 mg HS ALF Administration Cyclosporine ( 1 drop 05/27/17 11:30 05/28/17 22:30 Restasis) 0.05% Eye OU 1 drop Drops (Pt's Own) Q12H ALF Administration Nateglinide (Starlix 0 mg 05/27/17 16:30 05/29/17 06:47 ) 60 Mg Tablet (Pt's PO 30 mg Own Med) BIDAC ALF Administration Nystatin 1 applic 05/26/17 11:45 05/29/17 10:57 Nystop Powder - TP 1 applic DAILY ALF Administration Polyethylene Glycol 17 gm 05/26/17 08:00 05/28/17 08:48 Miralax (For Daily Use) - PO 17 grams Q48H ALF Administration OBJECTIVE: Vital Signs Period Temp Pulse Resp BP Sys/Phillips Pulse Ox Last 24 Hr 97 F-98.0 F 52-68 17-20 120-149/59-82 95 Physical Exam: General: NAD, A&Ox3 Lungs: CTA bilaterally Heart: S1S2 Abd: Soft, non-tender. LLQ colostomy bag. Ext: No erythema or edema noted CBCD WBC 4.5 K/mm3 (4.0-10.0) 05/29/17 07:15 RBC 4.16 M/mm3 (3.60-5.2) 05/29/17 07:15 Hgb 10.6 GM/dL (10.7-15.3) L 05/29/17 07:15 Hct 34.2 % (32.4-45.2) 05/29/17 07:15 MCV 82.2 fl (80-96) 05/29/17 07:15 MCHC 31.2 g/dl (32.0-36.0) L 05/29/17 07:15 RDW 19.6 % (11.6-15.6) H 05/29/17 07:15 Plt Count 146 K/MM3 (134-434) 05/29/17 07:15 MPV 10.5 fl (7.5-11.1) 05/29/17 07:15 CMP Sodium 144 mmol/L (136-145) 05/29/17 07:15 Potassium 4.4 mmol/L (3.5-5.1) 05/29/17 07:15 Chloride 110 mmol/L (98-107) H 05/29/17 07:15 Carbon Dioxide 29 mmol/L (21-32) 05/29/17 07:15 Anion Gap 5 (8-16) L 05/29/17 07:15 BUN 40 mg/dL (7-18) H 05/29/17 07:15 Creatinine 1.9 mg/dL (0.55-1.02) H 05/29/17 07:15 Creat Clearance w eGFR 24.89 (>60) 05/29/17 07:15 Random Glucose 94 mg/dL (74-106) 05/29/17 07:15 Calcium 8.6 mg/dL (8.5-10.1) 05/29/17 07:15 Total Bilirubin 0.3 mg/dL (0.2-1.0) 05/29/17 07:15 AST 12 U/L (15-37) L 05/29/17 07:15 ALT 8 U/L (12-78) L 05/29/17 07:15 Alkaline Phosphatase 66 U/L (45-117) 05/29/17 07:15 Total Protein 5.9 g/dl (6.4-8.2) L 05/29/17 07:15 Albumin 3.1 g/dl (3.4-5.0) L 05/29/17 07:15 Assessment: This is an 89 year old female with PMHx of A.fib (not on AC), DM, HTN, CHF, CKD 4, anemia, OA, colostomy, who presented to the ED with RLL cellulitis and LLE DVT Plan: 1) LLE DVT - Continue Eliquis 2.5mg po bid - Awaiting prior auth from insurance for approval for outpatient Eliquis 2) RLE cellulitis - Continue Cefazolin - Improving 3) CKD stage 4 - Cr better than baseline 4) Afib - Rate controlled - Eliquis bid - Continue Coreg 5) HTN - Continue Coreg 6) F/E/N: - Renal diet - HgbA1c 6.6, instruct dietary and lifestyle changes - Monitor electrolytes 7) Prophylaxis: - Eliquis 2.5mg po bid 8) Dispo: - Will need SNF, only ambulated 30 ft. Informed Lori (CM) CODE STATUS: FULL CODE Problem List - Problems (1) DVT (deep venous thrombosis) Code(s): I82.409 - ACUTE EMBOLISM AND THOMBOS UNSP DEEP VN UNSP LOWER EXTREMITY Qualifiers: DVT location: lower extremity Affected thrombotic vein of extremity: tibial Chronicity: acute Laterality: left Qualified Code(s): I82.442 - Acute embolism and thrombosis of left tibial vein
[2017-05-29] MEDS: EYE OU SCH ×2 (12:11→23:15)
[2017-05-29] MEDS: CYCLOSPORINE 0.05% OU SCH ×2 (12:11→23:15)
--- NOTE | 2017-05-29 13:05 | PN ---
Progress Note (short form) - Note Progress Note: Renal Follow up for CKD Pt seen and examined at the bedside awake and alert no acute complaints denies any sob, chest pain has a bruise on her left thigh Vital Signs Temperature 97.7 F 05/29/17 11:47 Pulse Rate 52 L 05/29/17 10:45 Respiratory Rate 20 05/29/17 10:45 Blood Pressure 140/70 05/29/17 10:45 O2 Sat by Pulse Oximetry (%) 95 05/28/17 21:00 Intake & Output 05/26/17 05/27/17 05/28/17 05/29/17 23:59 23:59 23:59 23:59 Intake Total 1350 1380 870 100 Balance 1350 1380 870 100 Weight 154 lb 8 oz 156 lb 4 oz Gen: NAD CVS: RRR, No M/R Lungs: CTA Abd: Obese, +ventral hernia Ext: Trace edema, hematoma on left thigh CBC, BMP 05/29/17 07:15 05/29/17 07:15 Current Medications Acetaminophen (Tylenol -) 650 mg PO Q4H PRN PRN Reason: FEVER OR PAIN Last Admin: 05/29/17 04:32 Dose: 650 mg Allopurinol (Zyloprim -) 100 mg PO DAILY ALF Last Admin: 05/29/17 10:57 Dose: 100 mg Apixaban (Eliquis -) 2.5 mg PO BID ALF Last Admin: 05/29/17 10:57 Dose: 2.5 mg Aspirin (Asa -) 81 mg PO DAILY ALF Last Admin: 05/29/17 10:57 Dose: 81 mg Carvedilol (Coreg -) 12.5 mg PO BID ALF Last Admin: 05/29/17 10:58 Dose: Not Given Gabapentin (Neurontin -) 600 mg PO HS ALF Last Admin: 05/28/17 22:22 Dose: 600 mg Cefazolin Sodium (Ancef 1gm Ivpb (Pre-Docked)) 50 mls @ 100 mls/hr IVPB Q8H-IV ALF Last Admin: 05/29/17 10:58 Dose: 100 mls/hr Insulin Aspart (Novolog Vial Sliding Scale -) 1 vial SQ ACHS ALF PRN Reason: Protocol Last Admin: 05/29/17 12:18 Dose: Not Given Latanoprost (Xalatan 0.005% Eye Drops -) 1 drop OU HS [facility] Last Admin: 05/28/17 22:28 Dose: 1 drop Mirtazapine (Remeron -) 15 mg PO HS [facility] Last Admin: 05/28/17 22:28 Dose: 15 mg Cyclosporine ( Restasis) 0.05% Eye Drops (Pt's Own) 1 drop OU Q12H [facility] Last Admin: 05/29/17 12:11 Dose: 1 drop Nateglinide (Starlix ) 60 Mg Tablet (Pt's Own Med) 0 mg PO BIDAC [facility] Last Admin: 05/29/17 06:47 Dose: 30 mg Nystatin (Nystop Powder -) 1 applic TP DAILY [facility] Last Admin: 05/29/17 10:57 Dose: 1 applic Polyethylene Glycol (Miralax (For Daily Use) -) 17 gm PO Q48H [facility] Last Admin: 05/28/17 08:48 Dose: 17 grams A/P 89 year old woman with PMhx of CKD Stage 4, DM, Multiple Abd surgeries for Diverticulitis, Chronic Anemia, Peripheral Neuropathy, COPD, who presented to the ED with Left LE swelling and and Right LE tenderness and found to have a left LE DVT. #CKD Stage 4 (Baseline CR 2.1-2.3) Renal function remains stable Pt appears evolemic and BUN Improved on IVF pt with good urine output can restart Lasix 20mg daily #DVT on Eliquis renal dose #Non-Anion gap metabolic acidosis secondary to CKD acidosis improved no longer needs bicarb #Normocytoic anemia iron saturation and Ferritin are within normal limits stool studies not recorded trend [facility] Problem List - Problems (1) DVT (deep venous thrombosis) Code(s): I82.409 - ACUTE EMBOLISM AND THOMBOS UNSP DEEP VN UNSP LOWER EXTREMITY Qualifiers: DVT location: lower extremity Affected thrombotic vein of extremity: tibial Chronicity: acute Laterality: left Qualified Code(s): I82.442 - Acute embolism and thrombosis of left tibial vein (2) CKD (chronic kidney disease) Code(s): N18.9 - CHRONIC KIDNEY DISEASE, UNSPECIFIED Qualifiers: Chronic kidney disease stage: stage 3 (moderate) Qualified Code(s): N18.3 - Chronic kidney disease, stage 3 (moderate) (3) Ventral hernia with bowel obstruction Code(s): K43.6 - OTHER AND UNSP VENTRAL HERNIA WITH OBSTRUCTION, W/O GANGRENE (4) Metabolic acidosis Code(s): E87.2 - ACIDOSIS
--- NOTE | 2017-05-29 13:53 | PN ---
Progress Note, Physician History of Present Illness: PULMONARY ALERT,NAD,-CP,SOB. - Current Medication List Current Medications: Active Medications Acetaminophen (Tylenol -) 650 mg PO Q4H PRN PRN Reason: FEVER OR PAIN Last Admin: 05/29/17 04:32 Dose: 650 mg Allopurinol (Zyloprim -) 100 mg PO DAILY COUNT INCLUDES [facility] Last Admin: 05/29/17 10:57 Dose: 100 mg Apixaban (Eliquis -) 2.5 mg PO BID COUNT INCLUDES THE [facility] Last Admin: 05/29/17 10:57 Dose: 2.5 mg Aspirin (Asa -) 81 mg PO DAILY COUNT INCLUDES THE [facility] Last Admin: 05/29/17 10:57 Dose: 81 mg Carvedilol (Coreg -) 12.5 mg PO BID COUNT INCLUDES [facility] Last Admin: 05/29/17 10:58 Dose: Not Given Gabapentin (Neurontin -) 600 mg PO HS COUNT INCLUDES [facility] Last Admin: 05/28/17 22:22 Dose: 600 mg Cefazolin Sodium (Ancef 1gm Ivpb (Pre-Docked)) 50 mls @ 100 mls/hr IVPB Q8H-IV COUNT INCLUDES THE [facility] Last Admin: 05/29/17 10:58 Dose: 100 mls/hr Insulin Aspart (Novolog Vial Sliding Scale -) 1 vial SQ ACHS ALF PRN Reason: Protocol Last Admin: 05/29/17 12:18 Dose: Not Given Latanoprost (Xalatan 0.005% Eye Drops -) 1 drop OU HS [facility] Last Admin: 05/28/17 22:28 Dose: 1 drop Mirtazapine (Remeron -) 15 mg PO HS [facility]CLUD[facility] Last Admin: 05/28/17 22:28 Dose: 15 mg Cyclosporine ( Restasis) 0.05% Eye Drops (Pt's Own) 1 drop OU Q12H COUNT [facility]CLUD[facility] Last Admin: 05/29/17 12:11 Dose: 1 drop Nateglinide (Starlix ) 60 Mg Tablet (Pt's Own Med) 0 mg PO BIDAC COUNT INCLUDES THE [facility] Last Admin: 05/29/17 06:47 Dose: 30 mg Nystatin (Nystop Powder -) 1 applic TP DAILY COUNT [facility]CLUD[facility] Last Admin: 05/29/17 10:57 Dose: 1 applic Polyethylene Glycol (Miralax (For Daily Use) -) 17 gm PO Q48H COUNT [facility]CLUDES [facility] Last Admin: 05/28/17 08:48 Dose: 17 grams - Objective Vital Signs: Vital Signs Temperature 97.7 F 05/29/17 11:47 Pulse Rate 64 05/29/17 12:58 Respiratory Rate 20 05/29/17 12:58 Blood Pressure 140/73 05/29/17 12:58 O2 Sat by Pulse Oximetry (%) 95 05/28/17 21:00 Constitutional: Yes: Well Nourished, Calm Eyes: Yes: WNL HENT: Yes: WNL Neck: Yes: WNL Cardiovascular: Yes: Pulse Irregular, S1, S2 Respiratory: Yes: Rales (FEW BIBASILAR CRACKLES) Gastrointestinal: Yes: Normal Bowel Sounds, Soft Extremities: Yes: WNL, Erythema (LESS ERYTHEMA RLE) Labs: CBC, BMP 05/29/17 07:15 05/29/17 07:15 INR, PTT INR 1.03 (0.82-1.09) 05/25/17 22:52 Problem List - Problems (1) DVT (deep venous thrombosis) Code(s): I82.409 - ACUTE EMBOLISM AND THOMBOS UNSP DEEP VN UNSP LOWER EXTREMITY Qualifiers: DVT location: lower extremity Affected thrombotic vein of extremity: tibial Chronicity: acute Laterality: left Qualified Code(s): I82.442 - Acute embolism and thrombosis of left tibial vein (2) Metabolic acidosis Code(s): E87.2 - ACIDOSIS (3) ASHD (arteriosclerotic heart disease) Code(s): I25.10 - ATHSCL HEART DISEASE OF [place] CORONARY ARTERY W/O ANG PCTRS (4) Anemia Code(s): D64.9 - ANEMIA, UNSPECIFIED (5) Atrial fibrillation and flutter Code(s): I48.91 - UNSPECIFIED ATRIAL FIBRILLATION I48.92 - UNSPECIFIED ATRIAL FLUTTER (6) CKD (chronic kidney disease) Code(s): N18.9 - CHRONIC KIDNEY DISEASE, UNSPECIFIED Qualifiers: Chronic kidney disease stage: stage 3 (moderate) Qualified Code(s): N18.3 - Chronic kidney disease, stage 3 (moderate) (7) CKD (chronic kidney disease) stage 4, GFR 15-29 ml/min Code(s): N18.4 - CHRONIC KIDNEY DISEASE, STAGE 4 (SEVERE) (8) Diabetes 1.5, managed as type 2 Code(s): E13.9 - OTHER SPECIFIED DIABETES MELLITUS WITHOUT COMPLICATIONS (9) Hypertension Code(s): I10 - ESSENTIAL (PRIMARY) HYPERTENSION Assessment/Plan IMP LLE DVT CELLULITIS IMPROVING AFIB H/O CHF CHRONIC KIDNEY DISEASE STAGE 4 HTN DM ANEMIA S/P COLOSTOMY PLAN ELIQUIS ANTIBIOTICS RATE CONTROL DR RATLIFF Problem List - Problems (1) DVT (deep venous thrombosis) Code(s): I82.409 - ACUTE EMBOLISM AND THOMBOS UNSP DEEP VN UNSP LOWER EXTREMITY Qualifiers: DVT location: lower extremity Affected thrombotic vein of extremity: tibial Chronicity: acute Laterality: left Qualified Code(s): I82.442 - Acute embolism and thrombosis of left tibial vein (2) Metabolic acidosis Code(s): E87.2 - ACIDOSIS (3) ASHD (arteriosclerotic heart disease) Code(s): I25.10 - ATHSCL HEART DISEASE OF [place] CORONARY ARTERY W/O ANG PCTRS (4) Anemia Code(s): D64.9 - ANEMIA, UNSPECIFIED (5) Atrial fibrillation and flutter Code(s): I48.91 - UNSPECIFIED ATRIAL FIBRILLATION I48.92 - UNSPECIFIED ATRIAL FLUTTER (6) CKD (chronic kidney disease) Code(s): N18.9 - CHRONIC KIDNEY DISEASE, UNSPECIFIED Qualifiers: Chronic kidney disease stage: stage 3 (moderate) Qualified Code(s): N18.3 - Chronic kidney disease, stage 3 (moderate) (7) CKD (chronic kidney disease) stage 4, GFR 15-29 ml/min Code(s): N18.4 - CHRONIC KIDNEY DISEASE, STAGE 4 (SEVERE) (8) Diabetes 1.5, managed as type 2 Code(s): E13.9 - OTHER SPECIFIED DIABETES MELLITUS WITHOUT COMPLICATIONS (9) Hypertension Code(s): I10 - ESSENTIAL (PRIMARY) HYPERTENSION
[2017-05-29] MEDS: LATANOPROST 0.005% OPHTH SOLN 2.5ML BOTTLE OU SCH (22:10)
[2017-05-29] MEDS: GABAPENTIN 300 MG CAPSULE (FP) PO SCH (22:10)
[2017-05-29] MEDS: MIRTAZAPINE 15 MG TABLET (FP) PO SCH (22:11)
[2017-05-30] MEDS: CEFAZOLIN (PRE-DOCKED) 50 ML IVPB SCH ×2 (01:42→10:49)
[2017-05-30] MEDS ORDERED: GABAPENTIN 300 MG CAPSULE (FP) PO SCH (01:54)
[2017-05-30] MEDS ORDERED: PT OWN MED DRAWER 7, Y5N ONE ×2 (06:00→10:46)
[2017-05-30] MEDS: NATEGLINIDE 60 MG PO SCH (06:00)
[2017-05-30] MEDS: INSULIN SLIDING SCALE (NOVOLOG) 1 VIAL SQ SCH ×2 (06:04→11:49)
[2017-05-30 07:41] LABS: BASOPHIL 0.9 % (0-2.0); EOSINOPHIL 5.2 % (0-4.5); MCH 25.5 pg (25.7-33.7); MCHC 30.9 g/dl (32.0-36.0); MEAN CELL VOLUME 82.5 fl (80-96); MEAN PLT VOLUME 10.3 fl (7.5-11.1); NEUTROPHILS 63.1 % (42.8-82.8); PLATELET COUNT 137 K/MM3 (134-434); RDW 19.6 % (11.6-15.6); WHITE BLOOD COUNT 4.8 K/mm3 (4.0-10.0)
[2017-05-30] MEDS: POLYETHYLENE GLYCOL 3350 119 GM BTL PO SCH ×2 (08:00→11:16)
[2017-05-30 08:07] LABS: ANION GAP 8 (8-16); CALCIUM 8.7 mg/dL (8.5-10.1); CO2 26 mmol/L (21-32); GLUCOSE,RANDOM 110 mg/dL (74-106)
[2017-05-30 08:09] LABS: CREATININE 1.9 mg/dL (0.55-1.02)
--- NOTE | 2017-05-30 09:55 | DS ---
Physical Examination Vital Signs: Vital Signs Temperature 98.7 F 05/30/17 06:00 Pulse Rate 60 05/30/17 06:00 Respiratory Rate 20 05/30/17 06:00 Blood Pressure 150/82 05/30/17 06:00 O2 Sat by Pulse Oximetry (%) 98 05/29/17 20:25 Labs: CBC, BMP 05/30/17 06:20 05/30/17 06:20 Discharge Summary Reason For Visit: DEEP VEIN THOMBOSIS (DVT) Current Active Problems DVT (deep venous thrombosis) (Acute) Metabolic acidosis (Acute) Hospital Course: CrCl 22, will give Keflex 500mg q12h x2 more days for total of 7 days treatment for cellulitis Condition: Improved - Instructions Diet, Activity, Other Instructions: Please return to the ED with new, persistent, or worsening symptoms. Please follow-up with providers as indicated. Referrals: Faisal Ha MD [Staff Physician] - (Please follow-up with nephrology within 1 week for further management of your chronic kidney disease) Star Santana MD [Primary Care Provider] - (Please follow-up with your pcp within 3-5 days for further management of your DVT and atrial fibrilation) Disposition: [facility] - Home Medications Comprehensive Discharge Medication List: Ambulatory Orders Allopurinol [Zyloprim -] 100 mg PO DAILY 05/26/17 Ascorbic Acid/Ascorbate Sodium [Vit C-Abigail Hips 500 mg Chew Tb] 500 mg PO BID Aspirin [Aspirin EC] 81 mg PO DAILY 05/26/17 Carvedilol 12.5 mg PO BID 05/26/17 Cyclosporine [Restasis] 1 drop OU Q12H 05/26/17 Gabapentin 300 mg PO DAILY 05/26/17 Iron 18 mg PO BID 05/26/17 Latanoprost 0.005% Eye Drops [Xalatan 0.005% Eye Drops -] 1 drop OU HS 05/26/17 Mirtazapine [Remeron Soltab -] 15 mg PO DAILY 05/26/17 Nateglinide [Starlix (Nf) -] 30 mg PO BID 05/26/17 Prilosec 0 mg PO DAILY 05/26/17 Vit B12/Intrinsic Fact/Folate [Intrinsi O34-Wyotzj Tablet] 1 each PO DAILY 05/26 Apixaban [Eliquis -] 2.5 mg PO BID #60 tablet 05/28/17 Acetaminophen [Tylenol .Regular Strength -] 650 mg PO Q4H PRN #0 tablet Cephalexin [Keflex] 500 mg PO Q12H #4 capsule 05/30/17 Furosemide [Lasix -] 20 mg PO DAILY tablet 05/30/17 Polyethylene Glycol 3350 [Miralax 119 gm Btl -] 17 gm PO Q48H bottle 05/30/17
[2017-05-30] MEDS ORDERED: FUROSEMIDE 20 MG TABLET (FP) PO SCH (10:00)
[2017-05-30 10:36] VITALS: BP 131/74; PULSE 69; TEMP 98.1
[2017-05-30] MEDS: ALLOPURINOL 100 MG TABLET (FP) PO SCH (10:48)
[2017-05-30] MEDS: CARVEDILOL 12.5 MG TABLET (FP) PO SCH (10:48)
[2017-05-30] MEDS: ASPIRIN 81 MG CHEWABLE TABLETS PO SCH (10:48)
[2017-05-30] MEDS: APIXABAN 2.5 MG TABLET PO SCH (10:49)
[2017-05-30] MEDS: NYSTATIN POWDER 100,000 UNITS/GM - 15 GM TOPICAL POWDER TP SCH (10:50)
[2017-05-30] MEDS: CYCLOSPORINE 0.05% OU SCH (10:54)
[2017-05-30] MEDS: EYE OU SCH (10:54)
== END 2017-05-30 12:02 | DRG 300 ==
LOC: JER 20:38 → INTOOBSV 05-26 01:46 → JERBED 05-26 01:46 → J5S 05-26 04:23 → OBSVTOIN 05-27 12:50
PROVIDERS: ADMIT Internal Medicine; ATTEND Registered Nurse
DX: I82.442 Acute embolism and thrombosis of left tibial vein (principal); I13.0 Hypertensive heart and chronic kidney disease with heart failure and stage 1 through stage 4 chronic kidney disease, or unspecified chronic kidney disease; N18.4 Chronic kidney disease, stage 4 (severe); N17.9 Acute kidney failure, unspecified; E87.2 Acidosis; L03.116 Cellulitis of left lower limb; E11.22 Type 2 diabetes mellitus with diabetic chronic kidney disease; I50.9 Heart failure, unspecified; J44.9 Chronic obstructive pulmonary disease, unspecified; I48.0 Paroxysmal atrial fibrillation; D63.8 Anemia in other chronic diseases classified elsewhere; M10.9 Gout, unspecified; K43.9 Ventral hernia without obstruction or gangrene; E11.21 Type 2 diabetes mellitus with diabetic nephropathy; M19.90 Unspecified osteoarthritis, unspecified site; F41.8 Other specified anxiety disorders; I25.10 Atherosclerotic heart disease of native coronary artery without angina pectoris; Z93.3 Colostomy status; Z87.891 Personal history of nicotine dependence
CPT/HCPCS: 36415; 71010-TC; 71020-TC; 80048; 80053; 81003; 81015; 82570; 82728; 83036; 83540; 83550; 83735; 83880; 84100; 84156; 85025; 85027; 85379; 85610; 93005; 93010; 93970-TC; 97116-GP; 97162-GP; 99282-25; G0378

== ENCOUNTER 2017-07-23 10:52 | Emergency (ER) | payer OTHER, MEDICARE ==
[2017-07-23 11:00] VITALS: TEMP 97.8; BMI 26.5
--- NOTE | 2017-07-23 11:28 | PDOC ---
History of Present Illness - General Chief Complaint: Injury Stated Complaint: FALL, INJURY Time Seen by Provider: 07/23/17 11:28 - History of Present Illness Initial Comments: 89 year old female with PMH of HTN, HLD, DMII, CKD 4, Afib, and recent DVT (on eliquis) presenting with right sandra-orbital swelling and right hand forearm lacerations after a fall. She took her list of medications at 9:50 AM this morning and felt a little but "woozy" but then felt fine a few minutes later. About an hour later she got out of her chair and waked to the foryeur without her cane. She then fell to the floor for an unknown reason but denies nausea, vomiting, visual disturbances, mechanical issue, palpitations, chest pain, or lightheadedness. She started to crawl toward her living room after a minute and eventually got onto an arm chair and was able to sit in it. She denies LOC or head trauma but is unsure how she fell. She states that she may have bene unsteady of had balance issues. She has had leg weakness over the last month since her DVT but has been rehabing and sometimes uses a cane to ambulate. She had carotid dopplers performed at her rehab center because of dizziness complaints which she was told were fine. 07/23/17 12:20 Past History - Past Medical History Allergies/Adverse Reactions: Allergies Allergy/AdvReac Type Severity Reaction Status Date / Time bacitracin Allergy Verified 07/23/17 10:54 bacitracin zinc Allergy Verified 07/23/17 10:54 [From Neosporin] codeine [Codeine] Allergy Verified 07/23/17 10:54 Home Medications: Ambulatory Orders Allopurinol [Zyloprim -] 100 mg PO DAILY 07/23/17 Apixaban [Eliquis] 2.5 mg PO DAILY 07/23/17 Apixaban [Eliquis] 2.5 mg PO HS 07/23/17 Ascorbic Acid/Ascorbate Sodium [Vitamin C 500 mg Wafer] 500 mg PO BID 07/23/17 Aspirin [ASA -] 81 mg PO DAILY 07/23/17 Carvedilol 12.5 mg PO DAILY 07/23/17 Carvedilol 12.5 mg PO HS 07/23/17 Cyanocobalamin (Vitamin B-12) [Vitamin B-12] 1,000 mg DAILY 07/23/17 Cyclosporine [Restasis] 1 each OP BID 07/23/17 Ferrous Sulfate [Slow Fe] 45 mg PO HS 07/23/17 Furosemide [Lasix] 20 mg PO DAILY 07/23/17 Gabapentin 300 mg PO HS 07/23/17 Latanoprost 2.5 ml OP DAILY 07/23/17 Meclizine HCl 12.5 mg PO DAILY 07/23/17 Mirtazapine 15 mg PO HS 07/23/17 Multivit-Min/Iron/Folic/Lutein [Centrum Silver Women Tablet] 1 each PO HS Nateglinide [Starlix (Nf)] 30 mg PO DAILY 07/23/17 Omeprazole Magnesium [Prilosec] 0 mg PO MOWEFR 07/23/17 Polyethylene Glycol 3350 [Miralax (For Daily Use) -] 17 gm PO ONCE 07/23/17 Cardiac Disorders: Yes (CHF) COPD: Yes CHF: Yes Diabetes: Yes (type 2) GI Disorders: Yes (Diverticulitis, multiple abd Sx WMC, colostomy) Disorders: Yes (incontinence) HTN: Yes Other medical history: DVT LLE - Surgical History Abdominal Surgery: Yes (COLOSTOMY, HERNIA) - Immunization History Immunization Up to Date: Yes - Suicide/Smoking/Psychosocial Hx Smoking Status: No Smoking History: Never smoked Have you smoked in the past 12 months: No Number of Cigarettes Smoked Daily: 0 If you are a former smoker, when did you quit?: 25yrs Information on smoking cessation initiated: No Hx Alcohol Use: No Drug/Substance Use Hx: No Substance Use Type: None Hx Substance Use Treatment: No Review of Systems - Review of Systems Constitutional: Yes: Loss of Appetite (over the past month). No: Chills, Fever HEENTM: Yes: Blurred Vision, Double Vision. No: Recent change in vision Respiratory: No: Cough, Orthopnea, Shortness of Breath Cardiac (ROS): No: Chest Pain, Lightheadedness ABD/GI: No: Constipated, Diarrhea, Nausea : No: Burning, Dysuria Musculoskeletal: Yes: Neck Pain Integumentary: Yes: Bruising, Erythema, Lesions Neurological: Yes: Unsteady Gait, Dizziness *Physical Exam - Vital Signs Last Vital Signs Temp Pulse Resp BP Pulse Ox 97.8 F 59 L 15 121/63 97 07/23/17 10:56 07/23/17 10:56 07/23/17 10:56 07/23/17 10:56 07/23/17 10:56 - Physical Exam General Appearance: Yes: Nourished, Appropriately Dressed. No: Apparent Distress HEENT: positive: EOMI, FUNMILAYO, Normal Voice. negative: Normal ENT Inspection ( Erythamtous swelling over the superior and inferior right orbit with some bruising as well. No bony step off. Some slightly blurry vision in right eye but left eye ) Neck: positive: Trachea midline, Normal Thyroid, Supple. negative: Tender, Rigid, Decreased range of motion Respiratory/Chest: positive: Lungs Clear, Normal Breath Sounds. negative: Chest Tender, Respiratory Distress, Accessory Muscle Use Cardiovascular: positive: Regular Rhythm, Regular Rate, S1, S2. negative: Edema , JVD, Murmur Gastrointestinal/Abdominal: positive: Normal Bowel Sounds, Soft. negative: Tender, Flat (Colostomy bag in place with prolapsed bowel into colostomy bag. Large right sided ventral hernia with intact skin graft overlying obvious bowel. ) Musculoskeletal: negative: Normal Inspection (Two lacerations on posterior right forearm. One liner 3 cm laceration and one flap laceration with arms measuring 2 and 3 cm ) Extremity: positive: Normal Range of Motion, Pelvis Stable. negative: Normal Inspection, Tender Integumentary: positive: Dry, Warm, Swelling (All per above), Ecchymosis, Bruising. 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 intact, Fully Oriented, Alert, Normal Mood/ Affect, Normal Response, Motor Strength 5/5 Procedures - Laceration/Wound Repair Right Posterior Arm Wound Length: 5.0 to 7.5 cm Wound Explored: clean Wound's Depth, Shape: superficial, linear, irregular, flap, stellate Irrigated w/ Saline: Yes Betadine Prep: No Anesthesia: 1% Lidocaine, 1% Lidocaine w/ Epi Amount of Anesthetic (ccs): 12 (8 ml 1% lido, 4 ml 1% lido with epi) Wound Repaired With: Sutures, Steri-strips, Dermabond Suture Size/Type: 4:0, nylon Number of Sutures: 6 Layer Closure: No Sterile Dressing Applied: Yes Splint Applied: No Progress: Two small lacerations approximately 3cm in length with one stellate lesion with two 2 and 3cm arms. They first linear laceration was repaired with three 4.0 nylon sutures the second laceration was partially closed with 3 4.0 nylon sutures and steri-strips with dermabond on top. Achieved good hemostasis and good approximation of wound edge while the patient was well anesthetized. 07/23/17 18:27 ED Treatment Course - LABORATORY CBC & Chemistry Diagram: 07/23/17 12:15 07/23/17 12:15 Medical Decision Making - Medical Decision Making 89 year old female on eliquis with suspected mechanical fall. Will get CT head and CBC, CMP, and PT/INR. Daughter (Sanna) [phone] 07/23/17 15:[address] head negative. Labs WNL with slightly elevated creatining 2.2 from 1.9 07/23/17 17:55 Lac on forearm repaired. Second CT head negative. Will DC patient with return precautions and lac care instructions. 07/23/17 18:18 *DC/Admit/Observation/Transfer Diagnosis at time of Disposition: Fall - Discharge Dispostion Disposition: HOME Condition at time of disposition: Stable Admit: No - Referrals Referrals: Star Santana MD [Primary Care Provider] - - Patient Instructions Additional Instructions: You were seen for your fall earlier today. We scanned your head and there was no bleed. Please use your cane to walk and please follow up with your pcp. Please see your PCP or come back to the ED in 10 days to have your stitches removed. Please keep your wounds clean and dry until you have them rechecked. Keep them completely dry for 24 hours then you can lightly clean them after that until you have them removed.
--- NOTE | 2017-07-23 11:32 | PDOC ---
Attending Attestation - Resident Resident Name: BobyYael - HPI HPI: 07/23/17 16:57 pt presents to the ED complaining of blepharohematoma after mechanical fall. Denies LOC. On eliquis. - Physicial Exam PE: 07/23/17 17:00 Agree with above exam. + facial hematoma with intact extraocular movements. - Medical Decision Making 07/23/17 17:[address] head negative. Fall was at 8:20. Will check [address] and discharge home. 07/23/17 17:00
[2017-07-23] MEDS ORDERED: LIDOCAINE 1%/EPI 1:100000 (20 ML MULTI DOSE VIAL) ONE (13:01)
[2017-07-23 13:02] LABS: BASOPHIL 2.6 % (0-2.0); EOSINOPHIL 2.9 % (0-4.5); MCH 25.5 pg (25.7-33.7); MCHC 31.2 g/dl (32.0-36.0); MEAN CELL VOLUME 81.5 fl (80-96); MEAN PLT VOLUME 10.4 fl (7.5-11.1); NEUTROPHILS 69.9 % (42.8-82.8); PLATELET COUNT 151 K/MM3 (134-434); RDW 19.5 % (11.6-15.6); WHITE BLOOD COUNT 6.1 K/mm3 (4.0-10.0)
[2017-07-23 13:32] LABS: ALBUMIN 3.1 g/dl (3.4-5.0); ANION GAP 11 (8-16); BILIRUBIN,TOTAL 0.3 mg/dL (0.2-1.0); CALCIUM 8.5 mg/dL (8.5-10.1); CO2 21 mmol/L (21-32); CPK 94 IU/L (26-192); CREATININE 2.2 mg/dL (0.55-1.02); GLUCOSE,RANDOM 79 mg/dL (74-106); SGOT/AST 15 U/L (15-37); SGPT/ALT 13 U/L (12-78); TOT PROT 5.8 g/dl (6.4-8.2)
[2017-07-23 13:34] LABS: ALK PHOS 59 U/L (45-117); TROPONIN I < 0.02 ng/ml (0.00-0.05)
[2017-07-23 14:43] LABS: INR 1.4 (0.82-1.09); PROTHROMBIN TIME (PATIENT) 15.5 SEC (9.98-11.88)
[2017-07-23 18:30] VITALS: BP 118/64; PULSE 62
--- NOTE | 2017-07-24 09:39 | EKG ---
Test Reason : Blood Pressure : / mmHG Vent. Rate : 058 BPM Atrial Rate : 058 BPM P-R Int : 210 ms QRS Dur : 086 ms QT Int : 434 ms P-R-T Axes : 011 -18 036 degrees QTc Int : 426 ms SINUS BRADYCARDIA WITH 1ST DEGREE A-V BLOCK WITH PREMATURE ATRIAL COMPLEXES OTHERWISE NORMAL ECG WHEN COMPARED WITH ECG OF 25-MAY-2017 23:01, PREMATURE ATRIAL COMPLEXES ARE NOW PRESENT Confirmed by PRICE BRYANT, BRIAN ([id number]) on 07/24/2017 9:39:00 AM Referred By: Confirmed By:BRIAN THRASHER MD
== END 2017-07-23 18:30 | disposition home or self-care (01) ==
LOC: JER 10:52
PROC: 0JQG0ZZ Repair Right Lower Arm Subcutaneous Tissue and Fascia, Open Approach (ICD-10-PCS; principal; 2017-07-23)
DX: S51.811A Laceration without foreign body of right forearm, initial encounter (principal); S61.411A Laceration without foreign body of right hand, initial encounter; S05.11XA Contusion of eyeball and orbital tissues, right eye, initial encounter; W18.39XA Other fall on same level, initial encounter; Z91.81 History of falling; Y93.89 Activity, other specified; Y92.038 Other place in apartment as the place of occurrence of the external cause; R26.81 Unsteadiness on feet; I12.9 Hypertensive chronic kidney disease with stage 1 through stage 4 chronic kidney disease, or unspecified chronic kidney disease; E11.22 Type 2 diabetes mellitus with diabetic chronic kidney disease; N18.4 Chronic kidney disease, stage 4 (severe); I48.91 Unspecified atrial fibrillation; Z79.01 Long term (current) use of anticoagulants; Z86.718 Personal history of other venous thrombosis and embolism; R26.89 Other abnormalities of gait and mobility; Z99.89 Dependence on other enabling machines and devices
CPT/HCPCS: 12002-25; 36415; 70450-TC; 80053; 84484; 85025; 85610; 93005; 93010; 99283-25